=== PATIENT | male | born 1970 | race Caucasian/White ===

== ENCOUNTER 2020-09-14 09:20 | Emergency (ER) | payer OTHER, BC, SELFPAY ==
--- NOTE | ~2020-09-14 | XR_ITS ---
EXAMINATION: XR CHEST CLINICAL INFORMATION: Cough with sputum production COMPARISON: January 07, 2012 TECHNIQUE: AP portable view of the chest was obtained. FINDINGS: No significant abnormality is noted involving the heart, lungs, mediastinum, bony thorax or soft tissues. XR/XR chest 1V IMPRESSION: No acute disease.
[2020-09-14 09:29] VITALS: BP 136/93; PULSE 71; RESP 18; TEMP 36.9; O2SAT 95; BMI 29.8
--- NOTE | 2020-09-14 10:59 | ECG_ITS ---
Test Reason : DYSPNEA Blood Pressure : / mmHG Vent. Rate : 070 BPM Atrial Rate : 070 BPM P-R Int : 152 ms QRS Dur : 090 ms QT Int : 414 ms P-R-T Axes : 027 010 018 degrees QTc Int : 447 ms Normal sinus rhythm Normal ECG When compared with ECG of 23-DEC-2016 19:02, No significant change was found Referred By: Lissa Momin Electronically Signed By:ARUN BECKER MD
[2020-09-14 12:25] VITALS: BP 145/97; PULSE 67; RESP 20; TEMP 36.8; O2SAT 95
--- NOTE | 2020-09-14 12:25 | PC.NURSE ---
iv inserted, labs drawn, vss, covid swab obtained, will continue to monitor.
[2020-09-14 12:31] LABS: MANUAL DIFF FLAG NO
[2020-09-14 12:33] LABS: Basophils Percent Auto 0.6 % (0-2); Eosinophils Absolute Auto 0.1 X10*3/uL (0.0-0.4); Eosinophils Percent Auto 2.1 % (0-4); Hematocrit 41.4 % (42-52); Hemoglobin 14.4 g/dl (14.0-18.0); Imm Gran Abs Auto 0.01 X10*3/uL (0.00-0.03); Imm Gran Pct Auto 0.2 % (0.0-0.4); Lymphocytes Absolute Auto 1.5 X10*3/uL (1.2-4.9); Lymphocytes Percent Auto 24.6 % (20-40); Mean Corpuscular HGB Conc 34.8 g/dl (31.0-36.0); Mean Corpuscular Hemoglobin 31.4 pg (27.0-33.0); Mean Corpuscular Volume 90.2 fL (80-98); Mean Platelet Volume 10.2 fL (9.4-12.4); Monocytes Absolute Auto 0.6 X10*3/uL (0.1-1.2); Monocytes Percent Auto 9.2 % (2-11); Neutrophils Absolute Auto 3.9 X10*3/uL (2.0-8.3); Neutrophils Percent Auto 63.3 % (45-73); Platelet Count 185 X10*3/uL (160-400); Red Blood Count 4.59 X10*6/uL (4.60-5.80); Red Cell Distribution Width 12.9 % (11.0-16.0); White Blood Count 6.2 X10*3/uL (4.8-10.8)
[2020-09-14 12:39] LABS: Prothrombin Time 11.5 SEC (10.8-13.0)
[2020-09-14 12:43] LABS: D Dimer < 200 NG/ML
[2020-09-14 13:05] LABS: Alanine Aminotransferase 96 U/L (0-40); Albumin Level 4.6 g/dL (3.5-5.0); Alkaline Phosphatase 67 U/L (39-117); Anion Gap 12 (12-20); Aspartate Amino Transferase 37 U/L (5-37); Bilirubin Direct 0.2 mg/dL (0.0-0.5); Bilirubin Total 0.5 mg/dL (0.0-1.0); Blood Urea Nitrogen 9 mg/dL (9-16); Carbon Dioxide 27 mmol/L (22-29); Chloride 105 mmol/L (96-108); Creatinine Clr Calc Pharmacy 125.6; Estimated Glomerular Filt Rate > 60; Glucose Random 109 mg/dL (60-115); Magnesium 2.3 mg/dL (1.6-2.6); Potassium 4.2 mmol/L (3.3-5.1); Sodium 140 mmol/L (135-145); Total Protein 7.9 g/dL (6.5-8.0)
[2020-09-14 13:10] LABS: B Type Natriuretic Peptide < 10 pg/mL (<100)
[2020-09-14 13:14] LABS: Lactate Dehydrogenase 274 U/L (118-273)
[2020-09-14 13:24] LABS: Procalcitonin 0.06 ng/mL
[2020-09-14 13:44] LABS: Ferritin 270 ng/mL (20-250)
[2020-09-14 14:18] LABS: Influenza A PCR NEGATIVE (Negative); Influenza B PCR NEGATIVE (Negative); Resp Syncy Virus RNA Qual PCR NEGATIVE (Negative); SARS COV2 PCR INHOUSE NEGATIVE (Negative)
--- NOTE | 2020-09-14 14:18 | ED.SOB ---
HPI - SOB/Dyspnea General Chief Complaint: Dyspnea <PERLITA Loya - Last Filed: 09/14/20 15:11> Stated Complaint: SOB <PERLITA Loya - Last Filed: 09/14/20 15:11> Time Seen by Provider: 09/14/20 10:32 <PERLITA Loya Last Filed: 09/14/20 15:11> Source: patient <PERLITA Loya Last Filed: 09/14/20 15:11> Mode of arrival: ambulatory <PERLITA Loya Last Filed: 09/14/20 15:11> Limitations: no limitations <PERLITA Loya Last Filed: 09/14/20 15:11> History of Present Illness HPI Narrative: 50-year-old male with a past medical history of asthma presenting to the ED with complaints of a productive cough with shortness of breath since last night worse today. Denies any headaches, dizziness, fevers, chills, neck pain/stiffness, sore throat, nasal congestion, runny nose, chest pain, dyspnea on exertion, orthopnea, nausea/vomiting/diarrhea, abdominal pain, back pain, lower extremity edema, penile discharge, dysuria, hematuria, black or bloody stools or any other symptom complaints or concerns at this time. Reports that he works at [employer] and works with chemicals. Denies recent travel or sick contacts. <PERLITA Loya - Last Filed: 09/14/20 15:11> MD elicited complaint: shortness of breath, cough and pain with inspiration <PERLITA Loya Last Filed: 09/14/20 15:11> Pertinent past history: asthma <PERLITA Loya - Last Filed: 09/14/20 15:11> Onset (ago): day(s) (Two days worse today) <PERLITA Loya Last Filed: 09/14/20 15:11> Context: other (Exposure to chemicals at work although has been working at same location over 20 years) <PERLITA Loya Last Filed: 09/14/20 15:11> Timing: constant and progressively worsening <PERLITA Loya Last Filed: 09/14/20 15:11> Severity: mild <PERLITA Loya Last Filed: 09/14/20 15:11> Exacerbating factors: coughing, inspiration and deep breaths <PERLITA Loya - Last Filed: 09/14/20 15:11> Relieving factors: rest <PERLITA Loya - Last Filed: 09/14/20 15:11> Known history of: asthma <PERLITA Loya - Last Filed: 09/14/20 15:11> Associated symptoms: cough and sputum production <PERLITA Loya Last Filed: 09/14/20 15:11> Related Data Home oxygen amount: none <PERLITA Loya - Last Filed: 09/14/20 15:11> Home Medications: Previous Rx's Medication Instructions Recorded acetaminophen [Tylenol Extra 1,000 mg PO QID PRN #14 tab 09/14/20 Strength] albuterol sulfate 0.63 mg INHALATION QID PRN #75 ml 09/14/20 albuterol sulfate 1 inh INHALATION QID PRN #8.5 g 09/14/20 azithromycin See Rx Instructions .ROUTE 09/14/20 .COMPLEX #6 tab codeine-guaifenesin [Guaifenesin 5 ml PO Q6H PRN #120 ml 09/14/20 AC] ibuprofen 800 mg PO Q8H PRN #14 tab 09/14/20 nebulizers [AeroEclipse II #1 ea 09/14/20 Nebulizer] <PERLITA Loya - Last Filed: 09/14/20 15:11> Allergies/Adverse Reactions: Allergies Allergy/AdvReac Type Severity Reaction Status Date / Time diazepam [DIAZEPAM] Allergy Severe SYNCOPY Unverified 02/03/20 17:08 pet dander Allergy Unknown Unverified 01/08/18 00:00 Environmental Allergy Unknown Uncoded 02/21/16 00:00 pollen Allergy Unknown Uncoded 01/08/18 00:00 buspirone AdvReac Unknown abdominal Uncoded 02/21/16 00:00 pain trazodone AdvReac Unknown alopecia Uncoded 02/21/16 00:00 <PERLITA Loya Last Filed: 09/14/20 15:11> Review of Systems Review of Systems: Constitutional : No Weight loss, No Fever, No Chills, No Night Sweats, No Fatigue, NoMalaise ENT/Mouth: No ear pain, No sore throat, No Difficulty swallowing Cardiovascular : No Chest Pain, No SOB, No Dyspnea on Exertion, No Orthopnea, NoEdema, No Palpitations Respiratory : + Cough, + Sputum, No Wheezing, No Dyspnea Gastrointestinal : No Nausea, No Vomiting, No abdominal pain, No Diarrhea, No blood streaked emesis, No coffee-ground emesis, No gross hematemesis, No blood streak stool, No gross hematochezia, No Melena Genitourinary : No irregular bleeding, No Dysuria, No Urinary Frequency, No Hematuria,No Urinary Incontinence, No Urgency, No Flank Pain Musculoskeletal : No joint pain, No Myalgias, No Joint Swelling Skin : No Skin Lesions, No rash Neuro : No Weakness, No Numbness, No Paresthesias, No Loss of Consciousness, NoDizziness, No Headache Psych : No Social Issues, Heme/Lymph: No Bruising, No Bleeding,No Lymphadenopathy Endocrine : No Polyuria, No Polydipsia, No Temperature Intolerance <PERLITA Loya - Last Filed: 09/14/20 15:11> Yes all other systems are reviewed and are negative <PERLITA Loya - Last Filed: 09/14/20 15:11> [facility] Past Medical History Attestation statement: The following information was validated with the patient. <PERLITA Loya - Last Filed: 09/14/20 15:11> Medical History: Medical History Asthma <PERLITA Loya - Last Filed: 09/14/20 15:11> Surgical History: Surgical History History of hand surgery <PERLITA Loya - Last Filed: 09/14/20 15:11> Social History Social History: Social History Smoking Status: Former smoker Use of substances other than those prescribed or required for medical reasons: No Advance Directives: Yes Advance Directives Information Provided: No Advance Directives on File: No <PERLITA Loya Last Filed: 09/14/20 15:11> Physical Exam Vital Signs: Vital Signs: Last Vital Signs Temp 98.2 F 09/14/20 14:33 Pulse 67 09/14/20 14:33 Resp 18 09/14/20 14:33 BP 134/93 H 09/14/20 14:33 Pulse Ox 95 09/14/20 14:33 Body Mass Index 29.8 vital signs have been reviewed as normal and appeared to be correct. Blood pressure normal. Heart rate normal. Respiration rate normal. Temperature normal. Oxygen saturation normal. <PERLITA Loya - Last Filed: 09/14/20 15:11> Vital Signs: Last Vital Signs Temp 98.2 F 09/14/20 14:33 Pulse 67 09/14/20 14:33 Resp 18 09/14/20 14:33 BP 134/93 H 09/14/20 14:33 Pulse Ox 95 09/14/20 14:33 Body Mass Index 29.8 <Eulalio Lamb MD - Last Filed: 09/30/20 01:36> Appearance: Alert. Oriented X3. No acute distress. Head: Normal external exam. Normocephalic. Atraumatic. Eyes: PERRLA. EOMI. Conjunctiva and sclera normal. Eyelids normal. ENT: EAC normal. TM's Normal. Pharynx normal. Uvula midline. Moist mucous membranes. No trismus noted. No drooling noted. No muffled voice noted. Neck: Normal inspection. Neck supple. FROM. No adenopathy. Thyroid Normal. No meningeal signs. No neck mass noted. CVS: Normal heart rate and rhythm. Heart sound normal. No murmurs noted. Pulses normal throughout. Respiratory: No respiratory distress. Painless inspiration. Breath sounds normal. No wheezes/rales/rhonchi noted. Chest nontender. No accessory muscle usage noted or decreased air movement noted. Abdomen: Soft and nontender. Bowel sounds normal in all 4 quadrants. No distention noted. No organomegaly noted. No visible injury noted. Back: No CVA tenderness. Full range of motion noted. Skin: Skin warm and dry. Normal skin color. Normal skin turgor. No rashes/lesions/lacerations noted. Extremities: No lower extremity edema. Extremities exhibit normal range of motion. Extremities nontender. Neuro: Oriented X 3. No motor deficit. No sensory deficit. Reflexes normal. <PERLITA Loya - Last Filed: 09/14/20 15:11> Course Course Course Narrative: 50-year-old male with a past medical history of asthma presenting to the ED with complaints of a productive cough since yesterday worse today. On exam patient is alert and oriented x3. Not in any acute distress. Vital signs are stable within normal limits. lungs CTA. CV RRR. Abdomen is soft and nontender. No lower extremity edema or calf tenderness noted. - labs obtained and mild elevation in ferritin at 270. ALT 96. LDH 274. All other labs are within normal limits. UA within normal limits no evidence of UTI. Patient is negative for COVID/RSV/flu. Chest x-ray is negative for pneumonia or any other acute processes. EKG is normal sinus rhythm no acute ischemic changes with a ventricular rate of 70 normal [place] interval normal QRS duration normal QT/QTC interval. - therefore instructed patient to get retested for COVID in 7-10 days and to self isolate will DC home with antibiotics and symptomatic treatment instructions to return if any new or worsening symptoms follow-up with primary care provider. Patient's and agrees with this plan. <PERLITA Loya - Last Filed: 09/14/20 15:11> I have reviewed the chart <Eulalio Lamb MD - Last Filed: 09/30/20 01:36> MDM - SOB/Dyspnea Differential Diagnosis Differential diagnosis: Likely acute exacerbation of chronic obstructive airways disease, congestive heart failure, pneumonia, asthma with exacerbation, pulmonary embolism, pleural effusion and anemia <PERLITA Loya - Last Filed: 09/14/20 15:11> Medical Records Attestation: I reviewed the patient's medical records. <PERLITA Loya - Last Filed: 09/14/20 15:11> Lab Data Attestation: I reviewed the patient's lab results. <PERLITA Loya - Last Filed: 09/14/20 15:11> Result diagrams: : 09/14/20 12:22 09/14/20 12:22 <PERLITA Loya - Last Filed: 09/14/20 15:11> Labs: Lab Results 09/14/20 09/14/20 09/14/20 Range/Units 12:22 12:22 12:22 WBC 6.2 (4.8-10.8) X10*3/uL RBC 4.59 L (4.60-5.80) X10*6/uL Hgb 14.4 (14.0-18.0) g/dl Hct 41.4 L (42-52) % MCV 90.2 (80-98) fL MCH 31.4 (27.0-33.0) pg MCHC 34.8 (31.0-36.0) g/dl RDW 12.9 (11.0-16.0) % Plt Count 185 (160-400) X10*3/uL MPV 10.2 (9.4-12.4) fL Immature Gran % (Auto) 0.2 (0.0-0.4) % Neut % (Auto) 63.3 (45-73) % Lymph % (Auto) 24.6 (20-40) % [place] % (Auto) 9.2 (2-11) % Eos % (Auto) 2.1 (0-4) % Baso % (Auto) 0.6 (0-2) % Lymph # (Auto) 1.5 (1.2-4.9) X10*3/uL [place] # (Auto) 0.6 (0.1-1.2) X10*3/uL Eos # (Auto) 0.1 (0.0-0.4) X10*3/uL Baso # (Auto) 0.0 (0.0-0.2) X10*3/uL Abs Immat Gran (auto) 0.01 (0.00-0.03) X10*3/uL Absolute Neuts (auto) 3.9 (2.0-8.3) X10*3/uL Absolute Nucleated RBC 0.000 (0.0-0.012) X10*3/uL Nucleated RBC % (auto) 0.0 (0.0-0.2) /100WBC Hold Purple Top SEE NOTE PT 11.5 (10.8-13.0) SEC INR 1.0 (0.9-1.1) D-Dimer < 200 NG/ML Sodium (135-145) mmol/L Potassium (3.3-5.1) mmol/L Chloride (96-108) mmol/L Carbon Dioxide (22-29) mmol/L Anion Gap (12-20) BUN (9-16) mg/dL Creatinine (0.5-1.4) mg/dL Estim Creat Clear Calc Estimated GFR Random Glucose (60-115) mg/dL Calcium (8.4-10.2) mg/dL Magnesium (1.6-2.6) mg/dL Ferritin (20-250) ng/mL Total Bilirubin (0.0-1.0) mg/dL Direct Bilirubin (0.0-0.5) mg/dL AST (5-37) U/L ALT (0-40) U/L Alkaline Phosphatase (39-117) U/L Lactate Dehydrogenase (118-273) U/L C-Reactive Protein (< or = 0.50) mg/dL B-Natriuretic Peptide (<100) pg/mL Total Protein (6.5-8.0) g/dL Albumin (3.5-5.0) g/dL Procalcitonin ng/mL Urine Color Urine Appearance Urine pH (5.0-8.0) Ur Specific [place] (1.005-1.025) Urine Protein (NEG-TRACE) MG/DL Urine Glucose (UA) (NEG) MG/DL Urine Ketones (NEG) MG/DL Urine Blood (NEG) Urine Nitrite (NEG) Ur Leukocyte Esterase (NEG) Coronavirus (PCR) (Negative) Influenza Type A (PCR) (Negative) Influenza Type B (PCR) (Negative) RSV RNA Qual (PCR) (Negative) 09/14/20 09/14/20 09/14/20 Range/Units 12:22 12:22 12:22 WBC (4.8-10.8) X10*3/uL RBC (4.60-5.80) X10*6/uL Hgb (14.0-18.0) g/dl Hct (42-52) % MCV (80-98) fL MCH (27.0-33.0) pg MCHC (31.0-36.0) g/dl RDW (11.0-16.0) % Plt Count (160-400) X10*3/uL MPV (9.4-12.4) fL Immature Gran % (Auto) (0.0-0.4) % Neut % (Auto) (45-73) % Lymph % (Auto) (20-40) % [place] % (Auto) (2-11) % Eos % (Auto) (0-4) % Baso % (Auto) (0-2) % Lymph # (Auto) (1.2-4.9) X10*3/uL [place] # (Auto) (0.1-1.2) X10*3/uL Eos # (Auto) (0.0-0.4) X10*3/uL Baso # (Auto) (0.0-0.2) X10*3/uL Abs Immat Gran (auto) (0.00-0.03) X10*3/uL Absolute Neuts (auto) (2.0-8.3) X10*3/uL Absolute Nucleated RBC (0.0-0.012) X10*3/uL Nucleated RBC % (auto) (0.0-0.2) /100WBC Hold Purple Top PT (10.8-13.0) SEC INR (0.9-1.1) D-Dimer NG/ML Sodium 140 (135-145) mmol/L Potassium 4.2 (3.3-5.1) mmol/L Chloride 105 (96-108) mmol/L Carbon Dioxide 27 (22-29) mmol/L Anion Gap 12 (12-20) BUN 9 (9-16) mg/dL Creatinine 0.87 (0.5-1.4) mg/dL Estim Creat Clear Calc 125.6 Estimated GFR > 60 Random Glucose 109 (60-115) mg/dL Calcium 9.0 (8.4-10.2) mg/dL Magnesium 2.3 (1.6-2.6) mg/dL Ferritin 270 H (20-250) ng/mL Total Bilirubin 0.5 (0.0-1.0) mg/dL Direct Bilirubin 0.2 (0.0-0.5) mg/dL AST 37 (5-37) U/L ALT 96 H (0-40) U/L Alkaline Phosphatase 67 (39-117) U/L Lactate Dehydrogenase 274 H (118-273) U/L C-Reactive Protein 0.50 (< or = 0.50) mg/dL B-Natriuretic Peptide < 10 (<100) pg/mL Total Protein 7.9 (6.5-8.0) g/dL Albumin 4.6 (3.5-5.0) g/dL Procalcitonin 0.06 ng/mL Urine Color Urine Appearance Urine pH (5.0-8.0) Ur Specific [place] (1.005-1.025) Urine Protein (NEG-TRACE) MG/DL Urine Glucose (UA) (NEG) MG/DL Urine Ketones (NEG) MG/DL Urine Blood (NEG) Urine Nitrite (NEG) Ur Leukocyte Esterase (NEG) Coronavirus (PCR) (Negative) Influenza Type A (PCR) (Negative) Influenza Type B (PCR) (Negative) RSV RNA Qual (PCR) (Negative) 09/14/20 09/14/20 Range/Units 12:22 14:36 WBC (4.8-10.8) X10*3/uL RBC (4.60-5.80) X10*6/uL Hgb (14.0-18.0) g/dl Hct (42-52) % MCV (80-98) fL MCH (27.0-33.0) pg MCHC (31.0-36.0) g/dl RDW (11.0-16.0) % Plt Count (160-400) X10*3/uL MPV (9.4-12.4) fL Immature Gran % (Auto) (0.0-0.4) % Neut % (Auto) (45-73) % Lymph % (Auto) (20-40) % [place] % (Auto) (2-11) % Eos % (Auto) (0-4) % Baso % (Auto) (0-2) % Lymph # (Auto) (1.2-4.9) X10*3/uL [place] # (Auto) (0.1-1.2) X10*3/uL Eos # (Auto) (0.0-0.4) X10*3/uL Baso # (Auto) (0.0-0.2) X10*3/uL Abs Immat Gran (auto) (0.00-0.03) X10*3/uL Absolute Neuts (auto) (2.0-8.3) X10*3/uL Absolute Nucleated RBC (0.0-0.012) X10*3/uL Nucleated RBC % (auto) (0.0-0.2) /100WBC Hold Purple Top PT (10.8-13.0) SEC INR (0.9-1.1) D-Dimer NG/ML Sodium (135-145) mmol/L Potassium (3.3-5.1) mmol/L Chloride (96-108) mmol/L Carbon Dioxide (22-29) mmol/L Anion Gap (12-20) BUN (9-16) mg/dL Creatinine (0.5-1.4) mg/dL Estim Creat Clear Calc Estimated GFR Random Glucose (60-115) mg/dL Calcium (8.4-10.2) mg/dL Magnesium (1.6-2.6) mg/dL Ferritin (20-250) ng/mL Total Bilirubin (0.0-1.0) mg/dL Direct Bilirubin (0.0-0.5) mg/dL AST (5-37) U/L ALT (0-40) U/L Alkaline Phosphatase (39-117) U/L Lactate Dehydrogenase (118-273) U/L C-Reactive Protein (< or = 0.50) mg/dL B-Natriuretic Peptide (<100) pg/mL Total Protein (6.5-8.0) g/dL Albumin (3.5-5.0) g/dL Procalcitonin ng/mL Urine Color YELLOW Urine Appearance CLEAR Urine pH 7.0 (5.0-8.0) Ur Specific [place] 1.020 (1.005-1.025) Urine Protein NEG (NEG-TRACE) MG/DL Urine Glucose (UA) NEG (NEG) MG/DL Urine Ketones NEG (NEG) MG/DL Urine Blood NEG (NEG) Urine Nitrite NEG (NEG) Ur Leukocyte Esterase NEG (NEG) Coronavirus (PCR) NEGATIVE (Negative) Influenza Type A (PCR) NEGATIVE (Negative) Influenza Type B (PCR) NEGATIVE (Negative) RSV RNA Qual (PCR) NEGATIVE (Negative) <PERLITA Loya - Last Filed: 09/14/20 15:11> Lab Results 09/14/20 09/14/20 09/14/20 Range/Units 12:22 12:22 12:22 WBC 6.2 (4.8-10.8) X10*3/uL RBC 4.59 L (4.60-5.80) X10*6/uL Hgb 14.4 (14.0-18.0) g/dl Hct 41.4 L (42-52) % MCV 90.2 (80-98) fL MCH 31.4 (27.0-33.0) pg MCHC 34.8 (31.0-36.0) g/dl RDW 12.9 (11.0-16.0) % Plt Count 185 (160-400) X10*3/uL MPV 10.2 (9.4-12.4) fL Immature Gran % (Auto) 0.2 (0.0-0.4) % Neut % (Auto) 63.3 (45-73) % Lymph % (Auto) 24.6 (20-40) % [place] % (Auto) 9.2 (2-11) % Eos % (Auto) 2.1 (0-4) % Baso % (Auto) 0.6 (0-2) % Lymph # (Auto) 1.5 (1.2-4.9) X10*3/uL [place] # (Auto) 0.6 (0.1-1.2) X10*3/uL Eos # (Auto) 0.1 (0.0-0.4) X10*3/uL Baso # (Auto) 0.0 (0.0-0.2) X10*3/uL Abs Immat Gran (auto) 0.01 (0.00-0.03) X10*3/uL Absolute Neuts (auto) 3.9 (2.0-8.3) X10*3/uL Absolute Nucleated RBC 0.000 (0.0-0.012) X10*3/uL Nucleated RBC % (auto) 0.0 (0.0-0.2) /100WBC Hold Purple Top SEE NOTE PT 11.5 (10.8-13.0) SEC INR 1.0 (0.9-1.1) D-Dimer < 200 NG/ML Sodium (135-145) mmol/L Potassium (3.3-5.1) mmol/L Chloride (96-108) mmol/L Carbon Dioxide (22-29) mmol/L Anion Gap (12-20) BUN (9-16) mg/dL Creatinine (0.5-1.4) mg/dL Estim Creat Clear Calc Estimated GFR Random Glucose (60-115) mg/dL Calcium (8.4-10.2) mg/dL Magnesium (1.6-2.6) mg/dL Ferritin (20-250) ng/mL Total Bilirubin (0.0-1.0) mg/dL Direct Bilirubin (0.0-0.5) mg/dL AST (5-37) U/L ALT (0-40) U/L Alkaline Phosphatase (39-117) U/L Lactate Dehydrogenase (118-273) U/L C-Reactive Protein (< or = 0.50) mg/dL B-Natriuretic Peptide (<100) pg/mL Total Protein (6.5-8.0) g/dL Albumin (3.5-5.0) g/dL Procalcitonin ng/mL Urine Color Urine Appearance Urine pH (5.0-8.0) Ur Specific [place] (1.005-1.025) Urine Protein (NEG-TRACE) MG/DL Urine Glucose (UA) (NEG) MG/DL Urine Ketones (NEG) MG/DL Urine Blood (NEG) Urine Nitrite (NEG) Ur Leukocyte Esterase (NEG) Coronavirus (PCR) (Negative) Influenza Type A (PCR) (Negative) Influenza Type B (PCR) (Negative) RSV RNA Qual (PCR) (Negative) 09/14/20 09/14/20 09/14/20 Range/Units 12:22 12:22 12:22 WBC (4.8-10.8) X10*3/uL RBC (4.60-5.80) X10*6/uL Hgb (14.0-18.0) g/dl Hct (42-52) % MCV (80-98) fL MCH (27.0-33.0) pg MCHC (31.0-36.0) g/dl RDW (11.0-16.0) % Plt Count (160-400) X10*3/uL MPV (9.4-12.4) fL Immature Gran % (Auto) (0.0-0.4) % Neut % (Auto) (45-73) % Lymph % (Auto) (20-40) % [place] % (Auto) (2-11) % Eos % (Auto) (0-4) % Baso % (Auto) (0-2) % Lymph # (Auto) (1.2-4.9) X10*3/uL [place] # (Auto) (0.1-1.2) X10*3/uL Eos # (Auto) (0.0-0.4) X10*3/uL Baso # (Auto) (0.0-0.2) X10*3/uL Abs Immat Gran (auto) (0.00-0.03) X10*3/uL Absolute Neuts (auto) (2.0-8.3) X10*3/uL Absolute Nucleated RBC (0.0-0.012) X10*3/uL Nucleated RBC % (auto) (0.0-0.2) /100WBC Hold Purple Top PT (10.8-13.0) SEC INR (0.9-1.1) D-Dimer NG/ML Sodium 140 (135-145) mmol/L Potassium 4.2 (3.3-5.1) mmol/L Chloride 105 (96-108) mmol/L Carbon Dioxide 27 (22-29) mmol/L Anion Gap 12 (12-20) BUN 9 (9-16) mg/dL Creatinine 0.87 (0.5-1.4) mg/dL Estim Creat Clear Calc 125.6 Estimated GFR > 60 Random Glucose 109 (60-115) mg/dL Calcium 9.0 (8.4-10.2) mg/dL Magnesium 2.3 (1.6-2.6) mg/dL Ferritin 270 H (20-250) ng/mL Total Bilirubin 0.5 (0.0-1.0) mg/dL Direct Bilirubin 0.2 (0.0-0.5) mg/dL AST 37 (5-37) U/L ALT 96 H (0-40) U/L Alkaline Phosphatase 67 (39-117) U/L Lactate Dehydrogenase 274 H (118-273) U/L C-Reactive Protein 0.50 (< or = 0.50) mg/dL B-Natriuretic Peptide < 10 (<100) pg/mL Total Protein 7.9 (6.5-8.0) g/dL Albumin 4.6 (3.5-5.0) g/dL Procalcitonin 0.06 ng/mL Urine Color Urine Appearance Urine pH (5.0-8.0) Ur Specific [place] (1.005-1.025) Urine Protein (NEG-TRACE) MG/DL Urine Glucose (UA) (NEG) MG/DL Urine Ketones (NEG) MG/DL Urine Blood (NEG) Urine Nitrite (NEG) Ur Leukocyte Esterase (NEG) Coronavirus (PCR) (Negative) Influenza Type A (PCR) (Negative) Influenza Type B (PCR) (Negative) RSV RNA Qual (PCR) (Negative) 09/14/20 09/14/20 Range/Units 12:22 14:36 WBC (4.8-10.8) X10*3/uL RBC (4.60-5.80) X10*6/uL Hgb (14.0-18.0) g/dl Hct (42-52) % MCV (80-98) fL MCH (27.0-33.0) pg MCHC (31.0-36.0) g/dl RDW (11.0-16.0) % Plt Count (160-400) X10*3/uL MPV (9.4-12.4) fL Immature Gran % (Auto) (0.0-0.4) % Neut % (Auto) (45-73) % Lymph % (Auto) (20-40) % [place] % (Auto) (2-11) % Eos % (Auto) (0-4) % Baso % (Auto) (0-2) % Lymph # (Auto) (1.2-4.9) X10*3/uL [place] # (Auto) (0.1-1.2) X10*3/uL Eos # (Auto) (0.0-0.4) X10*3/uL Baso # (Auto) (0.0-0.2) X10*3/uL Abs Immat Gran (auto) (0.00-0.03) X10*3/uL Absolute Neuts (auto) (2.0-8.3) X10*3/uL Absolute Nucleated RBC (0.0-0.012) X10*3/uL Nucleated RBC % (auto) (0.0-0.2) /100WBC Hold Purple Top PT (10.8-13.0) SEC INR (0.9-1.1) D-Dimer NG/ML Sodium (135-145) mmol/L Potassium (3.3-5.1) mmol/L Chloride (96-108) mmol/L Carbon Dioxide (22-29) mmol/L Anion Gap (12-20) BUN (9-16) mg/dL Creatinine (0.5-1.4) mg/dL Estim Creat Clear Calc Estimated GFR Random Glucose (60-115) mg/dL Calcium (8.4-10.2) mg/dL Magnesium (1.6-2.6) mg/dL Ferritin (20-250) ng/mL Total Bilirubin (0.0-1.0) mg/dL Direct Bilirubin (0.0-0.5) mg/dL AST (5-37) U/L ALT (0-40) U/L Alkaline Phosphatase (39-117) U/L Lactate Dehydrogenase (118-273) U/L C-Reactive Protein (< or = 0.50) mg/dL B-Natriuretic Peptide (<100) pg/mL Total Protein (6.5-8.0) g/dL Albumin (3.5-5.0) g/dL Procalcitonin ng/mL Urine Color YELLOW Urine Appearance CLEAR Urine pH 7.0 (5.0-8.0) Ur Specific [place] 1.020 (1.005-1.025) Urine Protein NEG (NEG-TRACE) MG/DL Urine Glucose (UA) NEG (NEG) MG/DL Urine Ketones NEG (NEG) MG/DL Urine Blood NEG (NEG) Urine Nitrite NEG (NEG) Ur Leukocyte Esterase NEG (NEG) Coronavirus (PCR) NEGATIVE (Negative) Influenza Type A (PCR) NEGATIVE (Negative) Influenza Type B (PCR) NEGATIVE (Negative) RSV RNA Qual (PCR) NEGATIVE (Negative) <Eulalio Lamb MD - Last Filed: 09/30/20 01:36> Imaging Data Chest x-ray: Attestation: I personally reviewed and interpreted this imaging study as follows: <PERLITA Loya - Last Filed: 09/14/20 15:11> Radiologist's impression: FINDINGS: No significant abnormality is noted involving the heart, lungs, mediastinum, bony thorax or soft tissues. XR/XR chest 1V IMPRESSION: No acute disease. <PERLITA Loya - Last Filed: 09/14/20 15:11> ECG Data Attestation: I personally reviewed and interpreted this ECG as follows: <PERLITA Loya - Last Filed: 09/14/20 15:11> ECG interpretation date: 09/14/20 <PERLITA Loya Last Filed: 09/14/20 15:11> ECG interpretation time: 11:04 <PERLITA Loya Last Filed: 09/14/20 15:11> Interpretation: Normal sinus rhythm with ventricular rate of 70 with a normal IL interval normal QRS duration normal QT/QTC interval. No acute ischemic changes are noted. Similar compared to prior EKG 12/23/2016 <PERLITA Loya Last Filed: 09/14/20 15:11> Discharge Plan Discharge Clinical Impression: Asthma, Asthma with exacerbation, Bronchitis <PERLITA Loya Last Filed: 09/14/20 15:11> Patient Disposition: Home, Self-Care <PERLITA Loya Last Filed: 09/14/20 15:11> Instructions: Asthma (ED), Acute Bronchitis (ED) <PERLITA Loya - Last Filed: 09/14/20 15:11> Additional Instructions: You have tested negative for COVID-19 at this time although this could be a false negative and you could possibly not have enough viral load in your body to test positive I am recommending that you have a repeat test in 7-10 days. You should also self isolate for 7-10 days. Return if any new or worsening symptoms. Follow-up with your primary care provider. At this time you will be okay for discharge. Please plan for self quarantine for up to 14 days. Do not expose yourself to others. You may not go to work. If testing does come back negative you may return to activities as long as you are no longer having any symptoms for at least 3 days. Please continue to follow cold instructions and wash your hands frequently. You may take Tylenol as directed on the bottle for pain or fever. Patient seen in the emergency department on 09/14/2020 and should be excused from work until negative test results AND until 72 hours without any symptoms AND at least 7 days have passed since symptoms first appeared or since last exposure to COVID-19 positive patient CDC Guidelines for home isolation: - Stay away from others - WEAR A MASK if you are sick AND STAY HOME - Cover your mouth and nose with a tissue when you cough or sneeze. Dispose of tissues in a lined trash can and wash your hands immediately with soap and water for at least 20 seconds. If soap and water are not available, clean hands with alcohol-based hand rn provider relations that contains at least 60% alcohol. - Clean your hands often with soap and water for at least 20 seconds - Avoid touching your eyes, nose and mouth with unwashed hands - Do not share dishes, drinking glasses, cups, eating utensils, towels, or bedding with other people in your home. After using these items, wash them thoroughly with soap and water or put in the affirmative action specialist. - Clean high-touch surfaces in your isolation area ( sick room and bathroom) every day; let a caregiver clean and disinfect high-touch surfaces in other areas of the home. Clean the area or item with soap and water or another detergent if it is dirty. Then, use a household disinfectant. - Limit contact with pets and animals: If you must care for a pet, wash your hands before and after interacting with them). <PERLITA Loya - Last Filed: 09/14/20 15:11> Prescriptions: New (DME) AeroEclipse II [place]ul[place] [facility] [place]ructions .ROUTE .MEDSUPPLY Qty: 1 RF: 0 azithromycin 250 mg tablet See Rx Instructions .ROUTE .COMPLEX Qty: 6 RF: 0 albuterol sulfate 0.63 mg/3 mL solution for nebulization 0.63 mg inhalation QID PRN (Reason: shortness of breath or wheezing) Qty: 75 RF: 0 albuterol sulfate 90 mcg/actuation HFA aerosol inhaler 1 inh inhalation QID PRN (Reason: shortness of breath or wheezing) Qty: 8.5 RF: 0 codeine-guaifenesin [Guaifenesin AC] 10-100 mg/5 mL liquid 5 ml PO Q6H PRN (Reason: cold symptoms) Qty: 120 RF: 0 ibuprofen 800 mg tablet 800 mg PO Q8H PRN (Reason: pain) Qty: 14 RF: 0 acetaminophen [Tylenol Extra Strength] 500 mg tablet 1,000 mg PO QID PRN (Reason: fever or pain) Qty: 14 RF: 0 <PERLITA Loya - Last Filed: 09/14/20 15:11> Referrals: William Echeverria MD [Primary Care Provider] - 2 days <PERLITA Loya - Last Filed: 09/14/20 15:11> Stand Alone Forms: Work/School Release <PERLITA Loya - Last Filed: 09/14/20 15:11> Interventions: ED Discharge Assessment Last Done: 09/14/20 15:06 <PERLITA Loya - Last Filed: 09/14/20 15:11> Discharge Date/Time: 09/14/20 15:16 <PERLITA Loya - Last Filed: 09/14/20 15:11> Print Language: [place] <PERLITA Loya - Last Filed: 09/14/20 15:11>
[2020-09-14 14:33] VITALS: BP 134/93; PULSE 67; RESP 18; TEMP 36.8; O2SAT 95
[2020-09-14 14:46] LABS: Glucose Urine UA NEG (NEG); Leukocyte Esterase Urine NEG (NEG); Nitrite Urine NEG (NEG); Urine Blood NEG (NEG); Urine Ketones NEG (NEG); Urine Protein NEG (NEG-TRACE)
[2020-09-14 14:47] LABS: Appearance Urine CLEAR; Color Urine YELLOW
== END 2020-09-14 15:16 | disposition home or self-care (01) ==
PROVIDERS: Physician Assistant Medical; Emergency Provider Emergency Medicine; PCP Internal Medicine
DX: J45.901 Unspecified asthma with (acute) exacerbation (principal); J20.9 Acute bronchitis, unspecified; Z20.822 Contact with and (suspected) exposure to COVID-19; Z87.891 Personal history of nicotine dependence
CPT/HCPCS: 0241U; 36415; 71045; 80053; 80076; 81003; 82248; 82728; 83615; 83735; 83880; 84145; 85025; 85379; 85610; 86140; 93005; 99283; 99285

== ENCOUNTER 2021-11-17 18:48 | Emergency (ER) | payer BC, SELFPAY ==
[2021-11-17 19:03] VITALS: BP 177/97; PULSE 75; O2SAT 99
[2021-11-17 19:20] VITALS: BP 171/96; PULSE 70; RESP 17; TEMP 37.1; O2SAT 97; BMI 32.8
[2021-11-17 19:35] LABS: MANUAL DIFF FLAG NO
[2021-11-17 19:50] LABS: Basophils Percent Auto 0.5 % (0-2); Eosinophils Absolute Auto 0.2 X10*3/uL (0.0-0.4); Eosinophils Percent Auto 3.4 % (0-4); Hematocrit 39.2 % (42.0-52.0); Hemoglobin 13.8 g/dl (14.0-18.0); Imm Gran Abs Auto 0.02 X10*3/uL (0.00-0.03); Imm Gran Pct Auto 0.3 % (0.0-0.4); Lymphocytes Absolute Auto 1.4 X10*3/uL (1.2-4.9); Lymphocytes Percent Auto 23.8 % (20-40); Mean Corpuscular HGB Conc 35.2 g/dl (31.0-36.0); Mean Corpuscular Hemoglobin 31.2 pg (27.0-33.0); Mean Corpuscular Volume 88.7 fL (80.0-98.0); Mean Platelet Volume 10.4 fL (9.4-12.4); Monocytes Absolute Auto 0.6 X10*3/uL (0.1-1.2); Monocytes Percent Auto 10.9 % (2-11); Neutrophils Absolute Auto 3.6 x10*3/uL (2.0-8.3); Neutrophils Percent Auto 61.1 % (45-73); Platelet Count 177 X10*3/uL (160-400); Red Blood Count 4.42 X10*6/uL (4.60-5.80); Red Cell Distribution Width 12.9 % (11.0-16.0); White Blood Count 5.9 X10*3/uL (4.8-10.8)
[2021-11-17 20:06] LABS: Alanine Aminotransferase 84 U/L (0-40); Albumin Level 4.4 g/dL (3.5-5.0); Alkaline Phosphatase 75 U/L (39-117); Anion Gap 13 (12-20); Aspartate Amino Transferase 39 U/L (5-37); Bilirubin Total 0.6 mg/dL (0.0-1.0); Blood Urea Nitrogen 10 mg/dL (9-16); Carbon Dioxide 24 mmol/L (22-29); Chloride 107 mmol/L (96-108); Creatinine Clr Calc Pharmacy 131.4; Estimated Glomerular Filt Rate > 60; Glucose Random 107 mg/dL (60-115); Lipase 31 U/L (8-78); Potassium 4.2 mmol/L (3.3-5.1); Sodium 140 mmol/L (135-145); Total Protein 7.6 g/dL (6.5-8.0)
== END 2021-11-17 22:14 | disposition left against medical advice (07) ==
PROVIDERS: Emergency Provider Emergency Medicine
DX: R10.11 Right upper quadrant pain (principal)
CPT/HCPCS: 36415; 80053; 83690; 85025; 99281; 99283

== ENCOUNTER 2023-07-22 22:19 | Emergency (ER) | payer BC, SELFPAY ==
--- NOTE | 2023-07-22 | ECG_ITS ---
Test Reason : HIGH BP Blood Pressure : / mmHG Vent. Rate : 069 BPM Atrial Rate : 069 BPM P-R Int : 148 ms QRS Dur : 090 ms QT Int : 392 ms P-R-T Axes : 037 016 030 degrees QTc Int : 420 ms Normal sinus rhythm Normal ECG When compared with ECG of 14-SEP-2020 11:04, No significant change was found Referred By: Generic ED Physician Electronically Signed By:Buck Hughes
[2023-07-22 22:29] VITALS: BP 167/104; BP 218/140; PULSE 70; PULSE 76; RESP 12; TEMP 36.8; O2SAT 97; O2SAT 98; BMI 31.0
--- NOTE | 2023-07-22 22:33 | MHC.EDTECH ---
Patient came in by ambulance,changed into hospital attire,vitals taken and placed on the glove boarder,EKG taken per order and signed by provider.Call castro in reach.
[2023-07-22 22:34] VITALS: BP 172/104; PULSE 69; RESP 12; TEMP 36.8; O2SAT 96
[2023-07-22 22:49] LABS: MANUAL DIFF FLAG NO
[2023-07-22 22:51] LABS: Basophils Percent Auto 0.4 % (0-2); Eosinophils Percent Auto 0.6 % (0-4); Hematocrit 39.7 % (42.0-52.0); Hemoglobin 14.2 g/dl (14.0-18.0); Imm Gran Abs Auto 0.01 X10*3/uL (0.00-0.03); Imm Gran Pct Auto 0.1 % (0.0-0.4); Lymphocytes Absolute Auto 1.2 X10*3/uL (1.2-4.9); Lymphocytes Percent Auto 18.2 % (20-40); Mean Corpuscular HGB Conc 35.8 g/dl (31.0-36.0); Mean Corpuscular Hemoglobin 30.9 pg (27.0-33.0); Mean Corpuscular Volume 86.3 fL (80.0-98.0); Mean Platelet Volume 9.7 fL (9.4-12.4); Monocytes Absolute Auto 0.6 X10*3/uL (0.1-1.2); Monocytes Percent Auto 8.5 % (2-11); Neutrophils Absolute Auto 4.8 x10*3/uL (2.0-8.3); Neutrophils Percent Auto 72.2 % (45-73); Platelet Count 197 X10*3/uL (160-400); Red Cell Distribution Width 12.7 % (11.0-16.0); White Blood Count 6.7 X10*3/uL (4.8-10.8)
[2023-07-22 23:04] LABS: Alanine Aminotransferase 55 U/L (0-40); Albumin Level 4.4 g/dL (3.5-5.0); Alkaline Phosphatase 64 U/L (39-117); Anion Gap 11 (12-20); Aspartate Amino Transferase 23 U/L (5-37); Bilirubin Total 0.4 mg/dL (0.0-1.0); Blood Urea Nitrogen 10 mg/dL (9-16); Calcium 9.1 mg/dL (8.4-10.2); Carbon Dioxide 27 mmol/L (22-29); Chloride 107 mmol/L (96-108); Creatinine Clr Calc Pharmacy 125.1; Estimated Glomerular Filt Rate > 60; Glucose Random 116 mg/dL (60-115); Potassium 3.5 mmol/L (3.3-5.1); Sodium 141 mmol/L (135-145); Total Protein 7.9 g/dL (6.5-8.0)
[2023-07-22 23:20] LABS: Troponin-I High Sensitivity < 2.7 ng/L (<3.5-35.0)
--- NOTE | 2023-07-22 23:53 | ED.GENADULT ---
HPI - General Adult General Chief complaint: General Medical Stated complaint: HTN Time Seen by Provider: 07/22/23 23:52 Source: patient Mode of arrival: ambulatory Limitations: no limitations History of Present Illness HPI narrative: Patient history of PTSD recently diagnosed with hypertension 3 days ago started on valsartan 80 mg daily today prior to arrival felt funny check the blood pressure was 190/120 became more anxious when EMS came blood pressure was 218/140 no headache no chest pain or palpitation EMS gave him 5 mg of IV Lopressor and blood pressure decreased to 182/117 Related Data Previous Rx's Medication Instructions Recorded acetaminophen 500 mg tablet 1,000 mg (2 x 500 mg) PO QID PRN 09/14/20 (Tylenol Extra Strength) fever or pain #14 tabs albuterol sulfate 0.63 mg/3 mL 0.63 mg (3 mL) inhalation QID PRN 09/14/20 solution for nebulization shortness of breath or wheezing #75 mL albuterol sulfate 90 mcg/actuation 1 inh inhalation QID PRN shortness 09/14/20 aerosol inhaler of breath or wheezing #8.5 grams azithromycin 250 mg tablet See Rx Instructions PO .COMPLEX #6 09/14/20 tabs codeine 10 mg-guaifenesin 100 mg/5 5 ml PO Q6H PRN cold symptoms #120 09/14/20 mL oral liquid (Guaifenesin AC) mL ibuprofen 800 mg tablet 800 mg PO Q8H PRN pain #14 tabs 09/14/20 nebulizers (AeroEclipse II #1 ea 09/14/20 Nebulizer) lorazepam 1 mg tablet (Ativan) 1 mg PO BEDTIME PRN anxiety/sleep 07/23/23 #20 tabs Allergies Allergy/AdvReac Type Severity Reaction Status Date / Time diazepam [DIAZEPAM] Allergy Severe SYNCOPY Verified 07/22/23 22:28 animal dander Allergy Unknown Unknown Verified 07/22/23 22:28 pollen extracts Allergy Unknown Unknown Verified 07/22/23 22:28 buspirone AdvReac Unknown Abdominal Verified 07/22/23 22:28 Pain trazodone AdvReac Unknown Alopecia Verified 07/22/23 22:28 Environmental Allergy Unknown Unknown Uncoded 07/22/23 22:28 Review of Systems Review of Systems: Yes all other systems are reviewed and are negative PMFSH Past Medical History Medical History Asthma Surgical History History of hand surgery Social History Social History Smoked in Last 30 Days: No Use of substances other than those prescribed or required for medical reasons: No Advance Directives: No Advance Directives Information Provided: No Physical Exam ED Vital Signs: Vital Signs - 24 hr 07/22/23 22:29 07/22/23 22:34 07/23/23 00:13 Temperature 98.2 F 98.2 F 98.4 F Pulse Rate 70 69 69 Respiratory Rate 12 12 20 Blood Pressure 167/104 H 172/104 H 174/99 H Pulse Oximetry 97 96 97 Oxygen Delivery Method Room Air Room Air Room Air 07/23/23 01:26 Temperature Pulse Rate 69 Respiratory Rate 14 Blood Pressure 155/98 H Pulse Oximetry 96 Oxygen Delivery Method Room Air BMI result Body Mass Index 31.0 Const Other: Appearance: Alert. Oriented X3. No acute distress. Anxious Eyes: PERRLA, No Nystagmus ENT: Pharynx normal. Oral Mucosa moist Neck: Normal inspection. Neck supple. CVS: Normal heart rate and rhythm. Pulses normal. Respiratory: No respiratory distress. Equal air entry bilateral, no wheezing/rales/rhonchi Abdomen: Soft and nontender. Bowel sounds are present, no mass palpable, no CVA tenderness Skin: Skin warm and dry. Normal skin color. Normal skin turgor. Extremities: No lower extremity edema. No calf tenderness Neuro: Oriented X 3. No motor deficit. No sensory deficit.No cerebellar signs , cranial nerves II-XII intact Medications Administered Discontinued Medications Generic Name Dose Route Start Last Admin Trade Name Freq PRN Reason Stop Dose Admin Lorazepam 1 mg 07/23/23 00:07 07/23/23 00:10 Lorazepam 2 Mg/Ml Vial IVPUSH 07/23/23 00:08 1 mg STAT STA Administration Medical Decision Making Medical Decision Making [facility] Narrative: Patient with PTSD and hypertension and elevated blood pressure 218/140 by EMS taking valsartan 80 mg for last 3 days was given Lopressor 5 mg IV by EMS on arrival patient's blood pressure was 167/104 patient was anxious was given Ativan 1 mg blood pressure improved to 150/99 denied any headache no chest pain. Patient advised to take Ativan for anxiety/stress and increased the dose of valsartan blood pressure continues to be elevated and follow with PCP Differential Diagnosis Differential Diagnoses: The differential diagnosis associated with the presentation includes Accelerated hypertension/hypertension crisis Lab Data MDM Lab Attestation statement: I reviewed the patient's lab results. 07/22/23 22:43 07/22/23 22:43 Labs: Lab Results 07/22/23 Range/Units 22:43 WBC 6.7 (4.8-10.8) X10*3/uL RBC 4.60 (4.60-5.80) X10*6/uL Hgb 14.2 (14.0-18.0) g/dl Hct 39.7 L (42.0-52.0) % MCV 86.3 (80.0-98.0) fL MCH 30.9 (27.0-33.0) pg MCHC 35.8 (31.0-36.0) g/dl RDW 12.7 (11.0-16.0) % Plt Count 197 (160-400) X10*3/uL MPV 9.7 (9.4-12.4) fL Immature Gran % (Auto) 0.1 (0.0-0.4) % Neut % (Auto) 72.2 (45-73) % Lymph % (Auto) 18.2 L (20-40) % Story % (Auto) 8.5 (2-11) % Eos % (Auto) 0.6 (0-4) % Baso % (Auto) 0.4 (0-2) % Lymph # (Auto) 1.2 (1.2-4.9) X10*3/uL Story # (Auto) 0.6 (0.1-1.2) X10*3/uL Eos # (Auto) 0.0 (0.0-0.4) X10*3/uL Baso # (Auto) 0.0 (0.0-0.2) X10*3/uL Abs Immat Gran (auto) 0.01 (0.00-0.03) X10*3/uL Absolute Neuts (auto) 4.8 (2.0-8.3) x10*3/uL Absolute Nucleated RBC 0.000 (0.0-0.012) X10*3/uL Nucleated RBC % (auto) 0.0 (0.0-0.2) /100WBC Sodium 141 (135-145) mmol/L Potassium 3.5 (3.3-5.1) mmol/L Chloride 107 (96-108) mmol/L Carbon Dioxide 27 (22-29) mmol/L Anion Gap 11 L (12-20) BUN 10 (9-16) mg/dL Creatinine 0.86 (0.5-1.4) mg/dL Estim Creat Clear Calc 125.1 Estimated GFR > 60 Random Glucose 116 H (60-115) mg/dL Calcium 9.1 (8.4-10.2) mg/dL Total Bilirubin 0.4 (0.0-1.0) mg/dL AST 23 (5-37) U/L ALT 55 H (0-40) U/L Alkaline Phosphatase 64 (39-117) U/L Troponin I High Sens < 2.7 (<3.5-35.0) ng/L Total Protein 7.9 (6.5-8.0) g/dL Albumin 4.4 (3.5-5.0) g/dL Independent Interpretation I performed an independent interpretation of an: EKG Interpretation: Normal sinus rhythm heart rate 69 beats per minute normal interval normal axis no acute ST T wave changes no acute ischemia Discharge Plan Discharge Clinical Impression: Hypertension, Anxiety Patient Disposition: Home, Self-Care Instructions: Hypertension (ED), Anxiety (ED) Additional Instructions: Decrease salt and caffeine intake Check your blood pressure before you take the medicine and before you go to bed Normal blood pressure should be less than 140/90 Take medication for anxiety and sleep as prescribed If blood pressure higher than 160/100 you may take 80 mg of valsartan daily total of 160 mg Follow-up with your PCP Prescriptions: New lorazepam [Ativan] 1 mg tablet 1 mg PO BEDTIME PRN (Reason: anxiety/sleep) Qty: 20 0RF No Action (DME) AeroEclipse II Nebulizer Misc See Rx Instructions .ROUTE .MEDSUPPLY Qty: 1 0RF Rx Instructions: As directed azithromycin 250 mg tablet See Rx Instructions .ROUTE .COMPLEX Qty: 6 0RF Rx Instructions: take 500 mg today (day 1), then 250 mg for 4 days (days 2-5) albuterol sulfate 0.63 mg/3 mL solution for nebulization 0.63 mg inhalation QID PRN (Reason: shortness of breath or wheezing) Qty: 75 0RF albuterol sulfate 90 mcg/actuation HFA aerosol inhaler 1 inh inhalation QID PRN (Reason: shortness of breath or wheezing) Qty: 8.5 0RF codeine-guaifenesin [Guaifenesin AC] 10-100 mg/5 mL liquid 5 ml PO Q6H PRN (Reason: cold symptoms) Qty: 120 0RF ibuprofen 800 mg tablet 800 mg PO Q8H PRN (Reason: pain) Qty: 14 0RF acetaminophen [Tylenol Extra Strength] 500 mg tablet 1,000 mg PO QID PRN (Reason: fever or pain) Qty: 14 0RF Interventions: ED Discharge Assessment Last Done: 07/23/23 01:34 Discharge Date/Time: 07/23/23 01:34
[2023-07-23] MEDS: LORazepam 2 MG/ML VIAL 1 MG IVPUSH (00:10)
[2023-07-23 00:13] VITALS: BP 174/99; PULSE 69; RESP 20; TEMP 36.9; O2SAT 97
[2023-07-23 01:26] VITALS: BP 155/98; PULSE 69; RESP 14; O2SAT 96
== END 2023-07-23 01:34 | disposition home or self-care (01) ==
PROVIDERS: Emergency Provider Internal Medicine; PCP Internal Medicine
DX: F41.1 Generalized anxiety disorder (principal); F43.0 Acute stress reaction; I10 Essential (primary) hypertension; Z79.899 Other long term (current) drug therapy
CPT/HCPCS: 36415; 80053; 84484; 85025; 93005; 96374; 99284; J2060

== ENCOUNTER → 2023-07-22 22:28 | Outpatient (BNV) | payer BC, SELFPAY | PROVIDERS: Emergency Provider Internal Medicine; PCP Internal Medicine; Visit Provider Internal Medicine Cardiovascular Disease | DX: I10 Essential (primary) hypertension (principal) | CPT/HCPCS: 93010 ==

== ENCOUNTER 2023-07-24 02:31 | Emergency (ER) | payer BC, SELFPAY ==
[2023-07-24 02:34] VITALS: BP 172/101; BP 182/118; PULSE 88; PULSE 95; RESP 14; TEMP 36.9; O2SAT 96; BMI 30.5
--- NOTE | 2023-07-24 03:46 | ED.RECABL ---
HPI - Recheck/Abnormal Lab/Rx General Chief Complaint: Recheck/Abnormal Lab/Rx Stated Complaint: HTN Time Seen by Provider: 07/24/23 02:47 Source: patient Mode of arrival: EMS History of Present Illness HPI narrative: 53-year-old male who was recently started on blood pressure medication approximately 4 days ago, has history anxiety, arrives via EMS stating that he took his medication as prescribed but then states that later in the evening he began to feel dizzy, facial flushing and his blood pressure was noted to be elevated. Related Data Previous Rx's Medication Instructions Recorded acetaminophen 500 mg tablet 1,000 mg (2 x 500 mg) PO QID PRN 09/14/20 (Tylenol Extra Strength) fever or pain #14 tabs albuterol sulfate 0.63 mg/3 mL 0.63 mg (3 mL) inhalation QID PRN 09/14/20 solution for nebulization shortness of breath or wheezing #75 mL albuterol sulfate 90 mcg/actuation 1 inh inhalation QID PRN shortness 09/14/20 aerosol inhaler of breath or wheezing #8.5 grams azithromycin 250 mg tablet See Rx Instructions PO .COMPLEX #6 09/14/20 tabs codeine 10 mg-guaifenesin 100 mg/5 5 ml PO Q6H PRN cold symptoms #120 09/14/20 mL oral liquid (Guaifenesin AC) mL ibuprofen 800 mg tablet 800 mg PO Q8H PRN pain #14 tabs 09/14/20 nebulizers (AeroEclipse II #1 ea 09/14/20 Nebulizer) lorazepam 1 mg tablet (Ativan) 1 mg PO BEDTIME PRN anxiety/sleep 07/23/23 #20 tabs Allergies Allergy/AdvReac Type Severity Reaction Status Date / Time diazepam [DIAZEPAM] Allergy Severe SYNCOPY Verified 07/24/23 02:45 animal dander Allergy Unknown Unknown Verified 07/24/23 02:45 pollen extracts Allergy Unknown Unknown Verified 07/24/23 02:45 buspirone AdvReac Unknown Abdominal Verified 07/24/23 02:45 Pain trazodone AdvReac Unknown Alopecia Verified 07/24/23 02:45 Environmental Allergy Unknown Unknown Uncoded 07/22/23 22:28 Review of Systems Review of Systems: Pertinent positives and negatives as stated in HPI PMFSH Past Medical History Source: nursing notes reviewed Medical History Asthma Surgical History History of hand surgery Social History Social History Unable to assess alcohol history related to: Unknown Smoked in Last 30 Days: No Use of substances other than those prescribed or required for medical reasons: No Advance Directives: No Advance Directives Information Provided: No Physical Exam Vital Signs: Vital Signs: Last Vital Signs Temp 98.5 F 07/24/23 02:34 Pulse 72 07/24/23 04:00 Resp 18 07/24/23 04:00 BP 165/100 H 07/24/23 04:00 Pulse Ox 97 07/24/23 04:00 O2 Del Method Room Air 07/24/23 02:34 BMI result Body Mass Index 30.5 VITAL SIGNS: Reviewed. GENERAL: Well developed, well nourished, in no acute distress. HEAD: Normocephalic/atraumatic EYES: PERRLA, EOMI EARS: Ext canals without abnormality NOSE: Nares patent bilateral OROPHARYNX: no oral lesions noted, posterior pharynx clear NECK: Supple, no adenopathy LUNGS: Normal breath sounds. No adventitious sounds or accessory muscle use. SpO2<97> CARDIOVASCULAR: Regular rate and rhythm without noted murmurs ABDOMEN: Soft, non-tender, non-distended with bowel sounds. MUSCULOSKELETAL: No tenderness, deformities, or effusions noted on gross inspection. EXTREMITIES: No cyanosis, clubbing or edema. SKIN: Inspection of the skin reveals no rashes NEUROLOGIC: Alert and oriented x 4. Strength and sensation to light touch were grossly intact x 4, no facial asymmetry, no pronator drift, cranial nerves 2-12 are grossly intact. Medications Administered Discontinued Medications Generic Name Dose Route Start Last Admin Trade Name Freq PRN Reason Stop Dose Admin Amlodipine Besylate 7.5 mg 07/24/23 04:08 07/24/23 04:18 Amlodipine Besylate 2.5 Mg Tablet PO 07/24/23 04:09 7.5 mg ONCE ONE Administration Protocol Medical Decision Making Medical Decision Making MDM Narrative: 53-year-old male with history and clinical presentation that on review of prior documentation appears to be combination poorly-controlled blood pressure and anxiety. Patient is nonfocal and has no chest pain. I am only able to appreciate a prescription for 80 mg of valsartan and patient endorses that an ED provider increased that to 160 and he states that throughout the day he feels well but then in the evening notes that his blood pressure increases once again. EKG is not significant for ischemic changes and patient is otherwise provided with 7.5 mg of Norvasc this evening and strongly encouraged to contact his primary care doctor 1st thing in the morning to arrange for an adjustment in his blood pressure medication. Differential Diagnosis Differential Diagnoses: The differential diagnosis associated with the presentation includes Please see the discussion above Admission/Observation Consideration of admission/observation: Escalation of care including admission/observation considered Please see the discussion above Independent Interpretation I performed an independent interpretation of an: EKG Interpretation: Normal sinus rhythm, HR-69, no STEMI, MS/QRS/QTC is within normal limits. External Record Review External record reviewed: Outpatient record, Prior outpatient labs and Prior outpatient radiology Chronic Conditions Patient?s care impacted by: Hypertension Anxiety Critical Care Time Critical Care Time Critical Care Time: Yes Total Critical Care Time: 30 Attestation: I personally attest to this time spent taking care of the patient. Discharge Plan Discharge Clinical Impression: Anxiety, Uncontrolled hypertension Patient Disposition: Home, Self-Care Instructions: DASH Eating Plan (ED), Hypertension (ED), Anxiety (ED) Additional Instructions: 1. Resume all home medications as prescribed. 2. It is exceedingly important that you contact your primary care doctor today to further discuss your blood pressure medication as well as your anxiety symptoms. Return to the ER for any worsening symptoms. Prescriptions: No Action (DME) AeroEclipse II Nebulizer Misc See Rx Instructions .ROUTE .MEDSUPPLY Qty: 1 0RF Rx Instructions: As directed azithromycin 250 mg tablet See Rx Instructions .ROUTE .COMPLEX Qty: 6 0RF Rx Instructions: take 500 mg today (day 1), then 250 mg for 4 days (days 2-5) albuterol sulfate 0.63 mg/3 mL solution for nebulization 0.63 mg inhalation QID PRN (Reason: shortness of breath or wheezing) Qty: 75 0RF albuterol sulfate 90 mcg/actuation HFA aerosol inhaler 1 inh inhalation QID PRN (Reason: shortness of breath or wheezing) Qty: 8.5 0RF codeine-guaifenesin [Guaifenesin AC] 10-100 mg/5 mL liquid 5 ml PO Q6H PRN (Reason: cold symptoms) Qty: 120 0RF ibuprofen 800 mg tablet 800 mg PO Q8H PRN (Reason: pain) Qty: 14 0RF acetaminophen [Tylenol Extra Strength] 500 mg tablet 1,000 mg PO QID PRN (Reason: fever or pain) Qty: 14 0RF lorazepam [Ativan] 1 mg tablet 1 mg PO BEDTIME PRN (Reason: anxiety/sleep) Qty: 20 0RF Referrals: Thomas Rosen MD [Primary Care Provider] -
[2023-07-24 04:00] VITALS: BP 165/100; PULSE 72; RESP 18; O2SAT 97
--- NOTE | 2023-07-24 04:10 | ECG_ITS ---
Test Reason : HYPERTENSION Blood Pressure : / mmHG Vent. Rate : 069 BPM Atrial Rate : 069 BPM P-R Int : 152 ms QRS Dur : 086 ms QT Int : 406 ms P-R-T Axes : 039 017 029 degrees QTc Int : 435 ms Normal sinus rhythm Normal ECG When compared with ECG of 22-JUL-2023 22:28, No significant change was found Referred By: Pam Taylor Electronically Signed By:Buck Hughes
[2023-07-24] MEDS: amLODIPine Besylate 2.5 MG TABLET 7.5 MG PO (04:18)
== END 2023-07-24 04:45 | disposition home or self-care (01) ==
PROVIDERS: Emergency Provider Student in an Organized Health Care Education/Training Program; PCP Internal Medicine
DX: F41.1 Generalized anxiety disorder (principal); F43.0 Acute stress reaction; I10 Essential (primary) hypertension; Z79.899 Other long term (current) drug therapy
CPT/HCPCS: 93005; 99283; 99284

== ENCOUNTER → 2023-07-24 04:10 | Outpatient (BNV) | payer BC, SELFPAY | PROVIDERS: Emergency Provider Student in an Organized Health Care Education/Training Program; PCP Internal Medicine; Visit Provider Internal Medicine Cardiovascular Disease | DX: I10 Essential (primary) hypertension (principal) | CPT/HCPCS: 93010 ==

== ENCOUNTER 2023-08-30 21:02 | Emergency (ER) | payer BC, SELFPAY ==
--- NOTE | 2023-08-30 | ECG_ITS ---
Test Reason : DIZZINESS Blood Pressure : / mmHG Vent. Rate : 075 BPM Atrial Rate : 075 BPM P-R Int : 152 ms QRS Dur : 092 ms QT Int : 362 ms P-R-T Axes : 040 023 045 degrees QTc Int : 404 ms Normal sinus rhythm Normal ECG When compared with ECG of 24-JUL-2023 04:14, No significant change was found Referred By: Generic ED Physician Electronically Signed By:Buck Hughes
[2023-08-30 21:09] VITALS: BP 119/85; BP 174/80; PULSE 81; PULSE 83; RESP 16; TEMP 37; O2SAT 98; BMI 27.1
[2023-08-30 21:32] LABS: MANUAL DIFF FLAG NO
[2023-08-30 21:45] LABS: Basophils Percent Auto 0.4 % (0-2); Eosinophils Absolute Auto 0.1 X10*3/uL (0.0-0.4); Eosinophils Percent Auto 1.8 % (0-4); Hemoglobin 13.5 g/dl (14.0-18.0); Imm Gran Abs Auto 0.02 X10*3/uL (0.00-0.03); Imm Gran Pct Auto 0.3 % (0.0-0.4); Lymphocytes Absolute Auto 1.3 X10*3/uL (1.2-4.9); Lymphocytes Percent Auto 17.6 % (20-40); Mean Corpuscular HGB Conc 35.5 g/dl (31.0-36.0); Mean Corpuscular Hemoglobin 30.8 pg (27.0-33.0); Mean Corpuscular Volume 86.6 fL (80.0-98.0); Mean Platelet Volume 10.2 fL (9.4-12.4); Monocytes Absolute Auto 0.7 X10*3/uL (0.1-1.2); Monocytes Percent Auto 9.3 % (2-11); Neutrophils Absolute Auto 5.1 x10*3/uL (2.0-8.3); Neutrophils Percent Auto 70.6 % (45-73); Platelet Count 190 X10*3/uL (160-400); Red Blood Count 4.39 X10*6/uL (4.60-5.80); Red Cell Distribution Width 12.2 % (11.0-16.0); White Blood Count 7.2 X10*3/uL (4.8-10.8)
[2023-08-30 21:52] LABS: Alanine Aminotransferase 41 U/L (0-40); Albumin Level 4.3 g/dL (3.5-5.0); Alkaline Phosphatase 64 U/L (39-117); Anion Gap 13 (12-20); Aspartate Amino Transferase 17 U/L (5-37); Bilirubin Total 0.5 mg/dL (0.0-1.0); Blood Urea Nitrogen 11 mg/dL (9-16); Calcium 9.3 mg/dL (8.4-10.2); Carbon Dioxide 28 mmol/L (22-29); Chloride 106 mmol/L (96-108); Creatinine Clr Calc Pharmacy 93.9; Estimated Glomerular Filt Rate > 60; Glucose Random 92 mg/dL (60-115); Sodium 143 mmol/L (135-145); Total Protein 7.7 g/dL (6.5-8.0)
[2023-08-30 21:59] LABS: Troponin-I High Sensitivity < 2.7 ng/L (<3.5-35.0)
[2023-08-31 01:24] VITALS: BP 143/94; PULSE 73; RESP 17; TEMP 36.6; O2SAT 98
--- NOTE | 2023-08-31 01:34 | PC.NURSE ---
Pt ca&ox4, no signs of distress. Pt denies pain. Pt reports anxiety and dizziness, believes its due to new meds. Plan of care ongoing.
--- NOTE | 2023-08-31 01:38 | ED.GENADULT ---
HPI - General Adult General Chief complaint: General Medical Stated complaint: DIZZINESS WHEN STANDING Time Seen by Provider: 08/31/23 01:38 Source: patient Mode of arrival: ambulatory Limitations: no limitations History of Present Illness HPI narrative: Patient history of anxiety/panic attacks on multiple medication the past now it is taking Wellbutrin 150 mg for last 1 week, feels more anxious, checked her blood pressure at home was 190/140 repeat was 170/100 by EMS on arrival it was 119/85 Related Data Previous Rx's ?Medication ?Instructions ?Recorded acetaminophen 500 mg tablet 1,000 mg (2 x 500 mg) PO QID PRN 09/14/20 (Tylenol Extra Strength) fever or pain #14 tabs albuterol sulfate 0.63 mg/3 mL 0.63 mg (3 mL) inhalation QID PRN 09/14/20 solution for nebulization shortness of breath or wheezing #75 mL albuterol sulfate 90 mcg/actuation 1 inh inhalation QID PRN shortness 09/14/20 aerosol inhaler of breath or wheezing #8.5 grams azithromycin 250 mg tablet See Rx Instructions PO .COMPLEX #6 09/14/20 tabs codeine 10 mg-guaifenesin 100 mg/5 5 ml PO Q6H PRN cold symptoms #120 09/14/20 mL oral liquid (Guaifenesin AC) mL ibuprofen 800 mg tablet 800 mg PO Q8H PRN pain #14 tabs 09/14/20 nebulizers (AeroEclipse II #1 ea 09/14/20 Nebulizer) lorazepam 1 mg tablet (Ativan) 1 mg PO BEDTIME PRN anxiety/sleep 07/23/23 #20 tabs lorazepam 1 mg tablet (Ativan) 1 mg PO BEDTIME PRN Anxiety/sleep 08/31/23 #10 tabs Allergies Allergy/AdvReac Type Severity Reaction Status Date / Time diazepam [DIAZEPAM] Allergy Severe SYNCOPY Verified 08/30/23 21:09 animal dander Allergy Unknown Unknown Verified 08/30/23 21:09 pollen extracts Allergy Unknown Unknown Verified 08/30/23 21:09 buspirone AdvReac Unknown Abdominal Verified 08/30/23 21:09 Pain trazodone AdvReac Unknown Alopecia Verified 08/30/23 21:09 Environmental Allergy Unknown Unknown Uncoded 07/22/23 22:28 Review of Systems Review of Systems: Yes all other systems are reviewed and are negative [facility] Past Medical History Medical History Asthma Surgical History History of hand surgery Social History Social History Unable to assess alcohol history related to: Unknown Smoked in Last 30 Days: No Use of substances other than those prescribed or required for medical reasons: Yes Substance Use Type: Marijuana Advance Directives: No Advance Directives Information Provided: No Physical Exam ED Vital Signs: Vital Signs - 24 hr 08/30/23 21:09 08/31/23 01:24 08/31/23 02:42 Temperature 98.6 F 97.9 F 97.9 F Pulse Rate 81 73 78 Respiratory Rate 16 17 18 Blood Pressure 119/85 143/94 H 143/94 H Pulse Oximetry 98 98 100 Oxygen Delivery Method Room Air Room Air Room Air BMI result Body Mass Index 27.1 Appearance: Alert. Oriented X3. No acute distress. Anxious Eyes: PERRLA, No Nystagmus ENT: Pharynx normal. Oral Mucosa moist Neck: Normal inspection. Neck supple. CVS: Normal heart rate and rhythm. Pulses normal. Respiratory: No respiratory distress. Equal air entry bilateral, no wheezing/rales/rhonchi Abdomen: Soft and nontender. Bowel sounds are present, Skin: Skin warm and dry. Normal skin color. Normal skin turgor. Extremities: No lower extremity edema. No calf tenderness Neuro: Oriented X 3. No motor deficit. No sensory deficit.No cerebellar signs , cranial nerves II-XII intact Medical Decision Making Medical Decision Making [facility] Narrative: Patient with anxiety/panic attack will give him Ativan Lab Data [facility] Lab Attestation statement: I reviewed the patient's lab results. 08/30/23 21:28 08/30/23 21:28 Labs: Lab Results 08/30/23 Range/Units 21:28 WBC 7.2 (4.8-10.8) X10*3/uL RBC 4.39 L (4.60-5.80) X10*6/uL Hgb 13.5 L (14.0-18.0) g/dl Hct 38.0 L (42.0-52.0) % MCV 86.6 (80.0-98.0) fL MCH 30.8 (27.0-33.0) pg MCHC 35.5 (31.0-36.0) g/dl RDW 12.2 (11.0-16.0) % Plt Count 190 (160-400) X10*3/uL MPV 10.2 (9.4-12.4) fL Immature Gran % (Auto) 0.3 (0.0-0.4) % Neut % (Auto) 70.6 (45-73) % Lymph % (Auto) 17.6 L (20-40) % [place] % (Auto) 9.3 (2-11) % Eos % (Auto) 1.8 (0-4) % Baso % (Auto) 0.4 (0-2) % Lymph # (Auto) 1.3 (1.2-4.9) X10*3/uL [place] # (Auto) 0.7 (0.1-1.2) X10*3/uL Eos # (Auto) 0.1 (0.0-0.4) X10*3/uL Baso # (Auto) 0.0 (0.0-0.2) X10*3/uL Abs Immat Gran (auto) 0.02 (0.00-0.03) X10*3/uL Absolute Neuts (auto) 5.1 (2.0-8.3) x10*3/uL Absolute Nucleated RBC 0.000 (0.0-0.012) X10*3/uL Nucleated RBC % (auto) 0.0 (0.0-0.2) /100WBC Sodium 143 (135-145) mmol/L Potassium 4.0 (3.3-5.1) mmol/L Chloride 106 (96-108) mmol/L Carbon Dioxide 28 (22-29) mmol/L Anion Gap 13 (12-20) BUN 11 (9-16) mg/dL Creatinine 1.01 (0.5-1.4) mg/dL Estim Creat Clear Calc 93.9 Estimated GFR > 60 Random Glucose 92 (60-115) mg/dL Calcium 9.3 (8.4-10.2) mg/dL Total Bilirubin 0.5 (0.0-1.0) mg/dL AST 17 (5-37) U/L ALT 41 H (0-40) U/L Alkaline Phosphatase 64 (39-117) U/L Troponin I High Sens < 2.7 (<3.5-35.0) ng/L Total Protein 7.7 (6.5-8.0) g/dL Albumin 4.3 (3.5-5.0) g/dL Discharge Plan Discharge Clinical Impression: Anxiety attack Patient Disposition: Home, Self-Care Instructions: Anxiety (ED) Additional Instructions: Medication for anxiety as prescribed Follow with PCP/psychiatrist Prescriptions: New lorazepam [Ativan] 1 mg tablet 1 mg PO BEDTIME PRN (Reason: Anxiety/sleep) Qty: 10 0RF No Action (DME) AeroEclipse II Nebulizer Misc See Rx Instructions .ROUTE .MEDSUPPLY Qty: 1 0RF Rx Instructions: As directed azithromycin 250 mg tablet See Rx Instructions .ROUTE .COMPLEX Qty: 6 0RF Rx Instructions: take 500 mg today (day 1), then 250 mg for 4 days (days 2-5) albuterol sulfate 0.63 mg/3 mL solution for nebulization 0.63 mg inhalation QID PRN (Reason: shortness of breath or wheezing) Qty: 75 0RF albuterol sulfate 90 mcg/actuation HFA aerosol inhaler 1 inh inhalation QID PRN (Reason: shortness of breath or wheezing) Qty: 8.5 0RF codeine-guaifenesin [Guaifenesin AC] 10-100 mg/5 mL liquid 5 ml PO Q6H PRN (Reason: cold symptoms) Qty: 120 0RF ibuprofen 800 mg tablet 800 mg PO Q8H PRN (Reason: pain) Qty: 14 0RF acetaminophen [Tylenol Extra Strength] 500 mg tablet 1,000 mg PO QID PRN (Reason: fever or pain) Qty: 14 0RF lorazepam [Ativan] 1 mg tablet 1 mg PO BEDTIME PRN (Reason: anxiety/sleep) Qty: 20 0RF Referrals: Shemar Millan MD [Physician] - 1 week Interventions: ED Discharge Assessment Last Done: 08/31/23 02:42 Discharge Date/Time: 08/31/23 02:42 Print Language: Hebrew
[2023-08-31 02:42] VITALS: BP 143/94; PULSE 78; RESP 18; TEMP 36.6; O2SAT 100
== END 2023-08-31 02:42 | disposition home or self-care (01) ==
PROVIDERS: Emergency Provider Internal Medicine; PCP Internal Medicine
DX: F41.0 Panic disorder [episodic paroxysmal anxiety] (principal); J45.909 Unspecified asthma, uncomplicated; Z79.899 Other long term (current) drug therapy; Z88.8 Allergy status to other drugs, medicaments and biological substances
CPT/HCPCS: 36415; 80053; 84484; 85025; 93005; 99283; 99284

== ENCOUNTER → 2023-08-30 21:21 | Outpatient (BNV) | payer BC, SELFPAY | PROVIDERS: Emergency Provider Internal Medicine; PCP Internal Medicine; Visit Provider Internal Medicine Cardiovascular Disease | DX: R42 Dizziness and giddiness (principal) | CPT/HCPCS: 93010 ==

== ENCOUNTER 2023-10-26 18:53 | Emergency (ER) | payer BC, SELFPAY ==
[2023-10-26 19:01] VITALS: BP 136/80; PULSE 81; RESP 18; TEMP 37.2; O2SAT 96; BMI 31.2
[2023-10-26 19:36] LABS: MANUAL DIFF FLAG NO
[2023-10-26 19:42] LABS: Basophils Percent Auto 0.3 % (0-2); Eosinophils Absolute Auto 0.1 X10*3/uL (0.0-0.4); Eosinophils Percent Auto 2.1 % (0-4); Hematocrit 36.7 % (42.0-52.0); Hemoglobin 13.2 g/dl (14.0-18.0); Imm Gran Abs Auto 0.02 X10*3/uL (0.00-0.03); Imm Gran Pct Auto 0.3 % (0.0-0.4); Lymphocytes Absolute Auto 1.5 X10*3/uL (1.2-4.9); Lymphocytes Percent Auto 24.1 % (20-40); Mean Corpuscular Hemoglobin 32.5 pg (27.0-33.0); Mean Corpuscular Volume 90.4 fL (80.0-98.0); Monocytes Absolute Auto 0.7 X10*3/uL (0.1-1.2); Monocytes Percent Auto 11.2 % (2-11); Neutrophils Absolute Auto 3.8 x10*3/uL (2.0-8.3); Platelet Count 201 X10*3/uL (160-400); Red Blood Count 4.06 X10*6/uL (4.60-5.80); Red Cell Distribution Width 14.2 % (11.0-16.0); White Blood Count 6.1 X10*3/uL (4.8-10.8)
[2023-10-26 19:54] LABS: Alanine Aminotransferase 56 U/L (0-40); Albumin Level 4.2 g/dL (3.5-5.0); Alkaline Phosphatase 54 U/L (39-117); Anion Gap 17 (12-20); Aspartate Amino Transferase 29 U/L (5-37); Bilirubin Total 0.6 mg/dL (0.0-1.0); Blood Urea Nitrogen 9 mg/dL (9-16); Calcium 9.2 mg/dL (8.4-10.2); Carbon Dioxide 21 mmol/L (22-29); Chloride 107 mmol/L (96-108); Creatinine Clr Calc Pharmacy 105.7; Estimated Glomerular Filt Rate > 60; Glucose Random 112 mg/dL (60-115); Potassium 4.2 mmol/L (3.3-5.1); Sodium 141 mmol/L (135-145); Total Protein 7.6 g/dL (6.5-8.0)
== END 2023-10-26 23:19 | disposition left against medical advice (07) ==
LOC: HO.ED 22:58
PROVIDERS: Emergency Provider Emergency Medicine; PCP Internal Medicine
DX: H53.9 Unspecified visual disturbance (principal); R42 Dizziness and giddiness
CPT/HCPCS: 36415; 80053; 85025; 99281; 99283

== ENCOUNTER 2024-01-12 10:39 | Emergency (ER) | payer BC, SELFPAY ==
--- NOTE | 2024-01-12 10:47 | ED_ITS ---
HPI - General Adult General Chief complaint: General Medical Stated complaint: HIGH BP 153/110 PER EMS Time Seen by Provider: 01/12/24 10:44 Source: patient, EMS, RN notes reviewed and old records reviewed Mode of arrival: EMS Limitations: no limitations History of Present Illness ED Provider: TOMMY AVERY PA-C HPI narrative: 53 year old male with pmhx significant for asthma, hypertension, anxiety, and PTSD presents to the ED today via EMS from home for evaluation of elevated blood pressure readings. BP reading at home reported by patient 180/111 this morning. On EMS arrival, BP 160/96. Patient reports slight headache and dizziness. Admits to waking up with increased anxiety today. No identifiable trigger however states that this is common with his PTSD. Patient reported associated chest tightness to RN however on my questioning, patient denies any chest pain or chest tightness. Patient reports he is compliant with his antihypertensives ( Denies fever, chills, dizziness, vision changes, palpitations, N/V, LE pain/swelling. Related Data Previous Rx's ?Medication ?Instructions ?Recorded acetaminophen 500 mg tablet 1,000 mg (2 x 500 mg) PO QID PRN 09/14/20 (Tylenol Extra Strength) fever or pain #14 tabs albuterol sulfate 0.63 mg/3 mL 0.63 mg (3 mL) inhalation QID PRN 09/14/20 solution for nebulization shortness of breath or wheezing #75 mL albuterol sulfate 90 mcg/actuation 1 inh inhalation QID PRN shortness 09/14/20 aerosol inhaler of breath or wheezing #8.5 grams azithromycin 250 mg tablet See Rx Instructions PO .COMPLEX #6 09/14/20 tabs codeine 10 mg-guaifenesin 100 mg/5 5 ml PO Q6H PRN cold symptoms #120 09/14/20 mL oral liquid (Guaifenesin AC) mL ibuprofen 800 mg tablet 800 mg PO Q8H PRN pain #14 tabs 09/14/20 nebulizers (AeroEclipse II #1 ea 09/14/20 Nebulizer) lorazepam 1 mg tablet (Ativan) 1 mg PO BEDTIME PRN anxiety/sleep 07/23/23 #20 tabs lorazepam 1 mg tablet (Ativan) 1 mg PO BEDTIME PRN Anxiety/sleep 04/14/24 #10 tabs lorazepam 1 mg tablet (Ativan) 1 mg PO DAILY PRN anxiety #10 tabs 01/12/24 Allergies Allergy/AdvReac Type Severity Reaction Status Date / Time diazepam [DIAZEPAM] Allergy Severe SYNCOPY Verified 01/12/24 10:59 animal dander Allergy Unknown Unknown Verified 01/12/24 10:59 pollen extracts Allergy Unknown Unknown Verified 01/12/24 10:59 buspirone AdvReac Unknown Abdominal Verified 01/12/24 10:59 Pain trazodone AdvReac Unknown Alopecia Verified 01/12/24 10:59 Environmental Allergy Unknown Unknown Uncoded 07/22/23 22:28 Review of Systems 2 Review of Systems: Constitutional: No fever, chills, fatigue, night sweats, weight changes ENT/Mouth: No ear pain, hearing loss, nasal congestion, sinus pain, rhinorrhea, sore throat Eyes: No eye pain, swelling, redness, vision changes, discharge Cardio: No chest pain, palpitations, LEDESMA, orthopnea, peripheral edema Pulm: No SOB, cough, sputum, wheezing, dyspnea, hemoptysis GI: No nausea, vomiting, hematemesis, abdominal pain, diarrhea, constipation, hematochezia, melena : No irregular bleeding, dysuria, frequency, urgency, hesitancy, hematuria, flank pain, urinary flow changes, urinary incontinence or retention MSK: No back pain, neck pain, joint pain, myalgias Skin: No lesions, rashes Neuro: No weakness, numbness, paresthesias, LOC, dizziness, +headache Psych: No panic, depression, SI/HI, AH/VH, +anxiety All other systems reviewed and are negative. [facility] Past Medical History Attestation statement: The following information was validated with the patient. Source: old records reviewed and nursing notes reviewed Medical History Asthma Surgical History History of hand surgery Social History Social History Unable to assess alcohol history related to: Unknown Substance Use Type: Marijuana Advance Directives: No Advance Directives Information Provided: No Physical Exam ED Vital Signs: Vital Signs - 24 hr 01/12/24 10:58 08/26/24 11:35 Temperature 98.6 F 99.3 F Pulse Rate 66 69 Respiratory Rate 18 22 H Blood Pressure 148/83 H 148/83 H Pulse Oximetry 99 97 Oxygen Delivery Method Room Air Room Air BMI result Body Mass Index 32.5 Slightly hypertensive to 148/83, vitals otherwise wnl. General: Well appearing, in no acute distress. Skin: Warm, dry, intact. No rashes or lesions. Head: Normocephalic, atraumatic. EENT: Hearing is intact b/l. Conjunctiva clear. Sclera is anicteric. PERRLA. EOM intact. Moist mucous membranes.? Neck: Supple without LAD. FROM. Trachea midline.? Cardiac: Chest wall symmetric. RRR. No MRG. No JVD. Lungs: Normal respiratory effort without accessory muscle use. CTA bilaterally. No rales, rhonchi, or wheezes.? Abdomen: Soft, non-tender, non-distended. No rebound tenderness or guarding. Positive BS x4. Back: No midline spinous or paraspinal tenderness. No step off deformity. Ext: Upper and lower extremities atraumatic, without tenderness, deformity, swelling or erythema. Full ROM throughout. Capillary refill <2 seconds in all extremities. Pulses 2+ equal and bilateral. Neuro: AOx3. Normal speech. CN 2-12 grossly intact. Strength 5/5 intact throughout. Sensation intact to light touch. NV intact distally. Reflexes 2+ bilaterally. Ambulating with steady gait. Psych: Appropriate mood and affect. Responds appropriately to questions. Course Course Course Narrative: 1153 -- CBC without leukocytosis or left shift. Chronic normocytic anemia when compared to priors, H and H stable. Chemistry without acute electrolyte abnormality requiring intervention. Troponin flat. EKG showing normal sinus rhythm with a rate of 68 beats per minute, QT 3, QTC 418, no acute ischemic changes or ST elevations. ACS unlikely. 1215-- patient's blood pressure has normalized in the ED after receiving IV Ativan. on arrival to ED, blood pressure 148/83. Now 120s over 80s. Patient does not require another dose of his antihypertensive at this time. On re- evaluation, patient reports symptom improvement after receiving IV Ativan. I have suspicion that patient's symptoms and elevated blood pressure are related to his anxiety. Will send prescription of Ativan to pharmacy however I did advise patient to follow up with his primary care doctor regarding further scripts as his medications may need to be adjusted. he verbalizes understanding. > Patient has remained stable throughout ED visit today. Discussed worrisome signs and symptoms and when to return to the ED. All questions answered at this time. Patient is agreeable with disposition and stable for discharge. Medications Administered Discontinued Medications Generic Name Dose Route Start Last Admin Trade Name Sherie PRN Reason Stop Dose Admin Lorazepam 1 mg 01/12/24 11:01 01/12/24 11:41 Lorazepam 2 Mg/Ml Vial IVPUSH 01/12/24 11:02 1 mg ONCE ONE Administration Medical Decision Making Medical Decision Making [facility] Narrative: 53 year old male with pmhx significant for asthma, hypertension, anxiety, and PTSD presents to the ED today via EMS from home for evaluation of elevated blood pressure readings. Patient is slightly hypertensive to 148/83, improved since patient's blood pressure reading at home this morning. Vitals are otherwise WNL. He is nontoxic appearing in no acute distress. Sitting comfortably on the exam bed. He tells me he feels extremely anxious and is requesting something for his anxiety. RRR. Lungs are clear bilaterally. No JVD or peripheral edema. Exam is nonfocal. Cerebellum is intact. He is ambulating with steady gait to the restroom. AOX3. no nystagmus. Differential diagnosis include essential hypertension, hypertensive urgency vs hypertensive emergency, anxiety, migraine vs tension headache. Unlikely ACS, arrhythmia, ICH, cerebellar stroke. Plan for ekg, basic labs, troponin and re-evaluation. Differential Diagnosis Differential Diagnoses: The differential diagnosis associated with the presentation includes as above. Admission/Observation not indicated Lab Data [facility] Lab Attestation statement: I reviewed the patient's lab results. As above 01/12/24 11:17 01/12/24 11:17 Labs: Lab Results 01/12/24 Range/Units 11:17 WBC 6.2 (4.8-10.8) X10*3/uL RBC 4.37 L (4.60-5.80) X10*6/uL Hgb 13.8 L (14.0-18.0) g/dl Hct 37.9 L (42.0-52.0) % MCV 86.7 (80.0-98.0) fL MCH 31.6 (27.0-33.0) pg MCHC 36.4 H (31.0-36.0) g/dl RDW 12.2 (11.0-16.0) % Plt Count 172 (160-400) X10*3/uL MPV 10.0 (9.4-12.4) fL Immature Gran % (Auto) 0.3 (0.0-0.4) % Neut % (Auto) 64.6 (45-73) % Lymph % (Auto) 22.2 (20-40) % [place] % (Auto) 10.5 (2-11) % Eos % (Auto) 2.1 (0-4) % Baso % (Auto) 0.3 (0-2) % Lymph # (Auto) 1.4 (1.2-4.9) X10*3/uL [place] # (Auto) 0.7 (0.1-1.2) X10*3/uL Eos # (Auto) 0.1 (0.0-0.4) X10*3/uL Baso # (Auto) 0.0 (0.0-0.2) X10*3/uL Abs Immat Gran (auto) 0.02 (0.00-0.03) X10*3/uL Absolute Neuts (auto) 4.0 (2.0-8.3) x10*3/uL Absolute Nucleated RBC 0.000 (0.0-0.012) X10*3/uL Nucleated RBC % (auto) 0.0 (0.0-0.2) /100WBC Sodium 141 (135-145) mmol/L Potassium 3.8 (3.3-5.1) mmol/L Chloride 106 (96-108) mmol/L Carbon Dioxide 29 (22-29) mmol/L Anion Gap 10 L (12-20) BUN 6 L (9-16) mg/dL Creatinine 0.85 (0.5-1.4) mg/dL Estim Creat Clear Calc 129.5 Estimated GFR > 60 Random Glucose 120 H (60-115) mg/dL Calcium 9.0 (8.4-10.2) mg/dL Magnesium 2.0 (1.6-2.6) mg/dL Total Bilirubin 0.6 (0.0-1.0) mg/dL AST 23 (5-37) U/L ALT 54 H (0-40) U/L Alkaline Phosphatase 59 (39-117) U/L Troponin I High Sens < 2.7 (<3.5-35.0) ng/L Total Protein 7.4 (6.5-8.0) g/dL Albumin 4.1 (3.5-5.0) g/dL Urine Color Yellow Urine Appearance Clear Urine pH 6.5 (5.0-9.0) Ur Specific [place] <= 1.005 (1.005-1.025) Urine Protein Negative (Neg-Trace) mg/dL Urine Glucose (UA) Negative (Negative) mg/dL Urine Ketones Negative (Negative) mg/dL Urine Blood Negative (Negative) Urine Nitrite Negative (Negative) Ur Leukocyte Esterase Negative (Negative) Independent Interpretation I performed an independent interpretation of an: EKG Interpretation: EKG showing normal sinus rhythm with a rate of 68 beats per minute, QT 394, QTC 418, no acute ischemic changes or ST elevations External Record Review External record reviewed: Inpatient record Prescription Management I considered prescription management with: Other (ativan) Chronic Conditions Patient?s care impacted by: Hypertension Social Determinants Patient?s care significantly limited by Social Determinants of Health including: Other Social Determinant of Health Critical Care Time Critical Care Time Critical Care Time: No Discharge Plan Discharge Clinical Impression: Hypertension, Anxiety Patient Disposition: Home, Self-Care Instructions: Chronic Hypertension (ED) Additional Instructions: You were evaluated in the ED today for elevated blood pressure. Your blood work today is reassuring. Your EKG is normal. Your urine does not demonstrate infection. Your blood pressure was initially elevated to 180/111, 160/96, and 148/83 and improved once you were treated with ativan. Elevated blood pressure likely related to your anxiety. A prescription for Ativan has been sent to your pharmacy. Please continue all home medications as prescribed. Please follow-up with your prescriber as your medications will likely need to be adjusted to better control your anxiety. Return to the ED with new or worsening symptoms. In the case of an emergency call 911. Prescriptions: New lorazepam [Ativan] 1 mg tablet 1 mg PO DAILY PRN (Reason: anxiety) Qty: 10 0RF No Action (DME) AeroEclipse II Nebulizer Misc See Rx Instructions .ROUTE .MEDSUPPLY Qty: 1 0RF Rx Instructions: As directed azithromycin 250 mg tablet See Rx Instructions .ROUTE .COMPLEX Qty: 6 0RF Rx Instructions: take 500 mg today (day 1), then 250 mg for 4 days (days 2-5) albuterol sulfate 0.63 mg/3 mL solution for nebulization 0.63 mg inhalation QID PRN (Reason: shortness of breath or wheezing) Qty: 75 0RF albuterol sulfate 90 mcg/actuation HFA aerosol inhaler 1 inh inhalation QID PRN (Reason: shortness of breath or wheezing) Qty: 8.5 0RF codeine-guaifenesin [Guaifenesin AC] 10-100 mg/5 mL liquid 5 ml PO Q6H PRN (Reason: cold symptoms) Qty: 120 0RF ibuprofen 800 mg tablet 800 mg PO Q8H PRN (Reason: pain) Qty: 14 0RF acetaminophen [Tylenol Extra Strength] 500 mg tablet 1,000 mg PO QID PRN (Reason: fever or pain) Qty: 14 0RF lorazepam [Ativan] 1 mg tablet 1 mg PO BEDTIME PRN (Reason: anxiety/sleep) Qty: 20 0RF lorazepam [Ativan] 1 mg tablet 1 mg PO BEDTIME PRN (Reason: Anxiety/sleep) Qty: 10 0RF Referrals: Thomas Rosen MD [Primary Care Provider] - Print Language: Spanish
--- NOTE | 2024-01-12 10:49 | ECG_ITS ---
Test Reason : HYPERTENSIVE Blood Pressure : / mmHG Vent. Rate : 068 BPM Atrial Rate : 068 BPM P-R Int : 162 ms QRS Dur : 092 ms QT Int : 394 ms P-R-T Axes : 035 019 030 degrees QTc Int : 418 ms Normal sinus rhythm Normal ECG When compared with ECG of 30-AUG-2023 21:21, No significant change was found Referred By: Anabel Loo Electronically Signed By:GLORIA MOY
[2024-01-12 10:53] VITALS: BP 168/96; PULSE 80; O2SAT 98
[2024-01-12 10:58] VITALS: BP 148/83; PULSE 66; RESP 18; TEMP 37; O2SAT 99; BMI 32.5
[2024-01-12 11:21] LABS: MANUAL DIFF FLAG NO
[2024-01-12 11:22] LABS: Basophils Percent Auto 0.3 % (0-2); Eosinophils Absolute Auto 0.1 X10*3/uL (0.0-0.4); Eosinophils Percent Auto 2.1 % (0-4); Hematocrit 37.9 % (42.0-52.0); Hemoglobin 13.8 g/dl (14.0-18.0); Imm Gran Abs Auto 0.02 X10*3/uL (0.00-0.03); Imm Gran Pct Auto 0.3 % (0.0-0.4); Lymphocytes Absolute Auto 1.4 X10*3/uL (1.2-4.9); Lymphocytes Percent Auto 22.2 % (20-40); Mean Corpuscular HGB Conc 36.4 g/dl (31.0-36.0); Mean Corpuscular Hemoglobin 31.6 pg (27.0-33.0); Mean Corpuscular Volume 86.7 fL (80.0-98.0); Monocytes Absolute Auto 0.7 X10*3/uL (0.1-1.2); Monocytes Percent Auto 10.5 % (2-11); Neutrophils Percent Auto 64.6 % (45-73); Platelet Count 172 X10*3/uL (160-400); Red Blood Count 4.37 X10*6/uL (4.60-5.80); Red Cell Distribution Width 12.2 % (11.0-16.0); White Blood Count 6.2 X10*3/uL (4.8-10.8)
[2024-01-12 11:25] LABS: Appearance Urine Clear; Color Urine Yellow; Glucose Urine UA Negative (Negative); Leukocyte Esterase Urine Negative (Negative); Nitrite Urine Negative (Negative); PH 6.5 (5.0-9.0); Specific Gravity - Urine <= 1.005 (1.005-1.025); Urine Blood Negative (Negative); Urine Ketones Negative (Negative); Urine Protein Negative (Neg-Trace)
[2024-01-12 11:35] VITALS: BP 148/83; PULSE 69; RESP 22; TEMP 37.4; O2SAT 97
[2024-01-12 11:36] LABS: Alanine Aminotransferase 54 U/L (0-40); Albumin Level 4.1 g/dL (3.5-5.0); Alkaline Phosphatase 59 U/L (39-117); Anion Gap 10 (12-20); Aspartate Amino Transferase 23 U/L (5-37); Bilirubin Total 0.6 mg/dL (0.0-1.0); Blood Urea Nitrogen 6 mg/dL (9-16); Carbon Dioxide 29 mmol/L (22-29); Chloride 106 mmol/L (96-108); Creatinine Clr Calc Pharmacy 129.5; Estimated Glomerular Filt Rate > 60; Glucose Random 120 mg/dL (60-115); Potassium 3.8 mmol/L (3.3-5.1); Sodium 141 mmol/L (135-145); Total Protein 7.4 g/dL (6.5-8.0)
--- NOTE | 2024-01-12 11:36 | MHC.EDTECH ---
helped patient walk to the bathroom stand by independent
[2024-01-12] MEDS: LORazepam 2 MG/ML VIAL 1 MG IVPUSH (11:41)
--- NOTE | 2024-01-12 11:43 | PC.NURSE ---
Pt's EMS IV infiltrated, removed. New #22 to RH PIV placed.
[2024-01-12 11:53] LABS: Troponin-I High Sensitivity < 2.7 ng/L (<3.5-35.0)
[2024-01-12 12:27] VITALS: BP 148/83; PULSE 69; RESP 22; TEMP 37.4; O2SAT 97
== END 2024-01-12 12:28 | disposition home or self-care (01) ==
PROVIDERS: Physician Assistant Medical; Emergency Provider Emergency Medicine; PCP Internal Medicine
DX: F41.1 Generalized anxiety disorder (principal); R07.89 Other chest pain; I10 Essential (primary) hypertension; F43.10 Post-traumatic stress disorder, unspecified; Z79.899 Other long term (current) drug therapy
CPT/HCPCS: 36415; 80053; 81003; 83735; 84484; 85025; 93005; 96374; 99284; J2060

== ENCOUNTER 2024-03-30 00:48 | Emergency (ER) | payer OTHER, SELFPAY ==
--- NOTE | 2024-03-30 | ECG_ITS ---
Test Reason : chest pain Blood Pressure : / mmHG Vent. Rate : 065 BPM Atrial Rate : 065 BPM P-R Int : 156 ms QRS Dur : 082 ms QT Int : 406 ms P-R-T Axes : 029 010 030 degrees QTc Int : 422 ms Normal sinus rhythm Normal ECG When compared with ECG of 12-JAN-2024 10:58, No significant change was found Referred By: Jyothi Payne Electronically Signed By:Buck Hughes
[2024-03-30 01:07] VITALS: BP 134/94; BP 164/108; PULSE 78; PULSE 83; RESP 16; TEMP 37; O2SAT 95; O2SAT 98; BMI 30.8
--- NOTE | 2024-03-30 01:47 | ED_ITS ---
HPI - Chest Pain General Chief Complaint: Chest Pain Stated Complaint: Hypertension, Dizzy, CP, SOB Time Seen by Provider: 03/30/24 01:15 Source: patient and EMS Mode of arrival: EMS Limitations: no limitations History of Present Illness ED Provider: EFREN HPI narrative: 53 yo male with HTN, GERD, anxiety on nightly ativan here with c/o watching a TV show did forget to take his ativan tonight - felt weird brain foggy and chest tightness just [employer] no numbness, weakness, nausea or difficulty walking - patient then checked BP 210/140. He is compliant with his carvedilol. He still feels he is slightly foggy but no other symptoms. MD complaint: chest heaviness Onset (ago): minute(s) ([employer]) Timing of current episode: now resolved Prior episodes: No Onset: during rest Pain location: substernal Pain radiation: none Severity: mild Quality: tightness Relieving factors: nothing Exacerbating factors: other Associated symptoms: sense of impending doom Treatment prior to arrival: none Related Data Previous Rx's ?Medication ?Instructions ?Recorded acetaminophen 500 mg tablet 1,000 mg (2 x 500 mg) PO QID PRN 09/14/20 (Tylenol Extra Strength) fever or pain #14 tabs albuterol sulfate 0.63 mg/3 mL 0.63 mg (3 mL) inhalation QID PRN 09/14/20 solution for nebulization shortness of breath or wheezing #75 mL albuterol sulfate 90 mcg/actuation 1 inh inhalation QID PRN shortness 09/14/20 aerosol inhaler of breath or wheezing #8.5 grams azithromycin 250 mg tablet See Rx Instructions PO .COMPLEX #6 09/14/20 tabs codeine 10 mg-guaifenesin 100 mg/5 5 ml PO Q6H PRN cold symptoms #120 09/14/20 mL oral liquid (Guaifenesin AC) mL ibuprofen 800 mg tablet 800 mg PO Q8H PRN pain #14 tabs 09/14/20 nebulizers (AeroEclipse II #1 ea 09/14/20 Nebulizer) lorazepam 1 mg tablet (Ativan) 1 mg PO BEDTIME PRN anxiety/sleep 07/23/23 #20 tabs lorazepam 1 mg tablet (Ativan) 1 mg PO BEDTIME PRN Anxiety/sleep 08/31/23 #10 tabs lorazepam 1 mg tablet (Ativan) 1 mg PO DAILY PRN anxiety #10 tabs 01/12/24 Allergies Allergy/AdvReac Type Severity Reaction Status Date / Time diazepam [DIAZEPAM] Allergy Severe SYNCOPY Verified 03/30/24 01:10 animal dander Allergy Unknown Unknown Verified 03/30/24 01:10 pollen extracts Allergy Unknown Unknown Verified 03/30/24 01:10 buspirone AdvReac Unknown Abdominal Verified 03/30/24 01:10 Pain trazodone AdvReac Unknown Alopecia Verified 03/30/24 01:10 Environmental Allergy Unknown Unknown Uncoded 03/30/24 01:10 Review of Systems 2 Review of Systems: Constitutional : No Fever, No Chills, No Fatigue ENT/Mouth : No sore throat, No Rhinorrhea Eyes: No Eye Pain, No Swelling, No Redness Cardiovascular : pos Chest Pain, No SOB, No Dyspnea on Exertion Respiratory : No Cough, No Sputum Gastrointestinal : No Nausea, No Vomiting, No Diarrhea, No abdominal Pain Genitourinary : No Dysuria, No Urinary Frequency, No Hematuria, Musculoskeletal : No joint pain, No Myalgias, No Joint Swelling Skin : No Skin Lesions, No rash Neuro : No Weakness, No Numbness, pos Dizziness, no Headache Psych : No Anxiety/Panic, No Depression Heme/Lymph: No Bruising, No Bleeding,No Lymphadenopathy Endocrine : No Polyuria, No Polydipsia All other systems reviewed and are negative [facility] Past Medical History Attestation statement: The following information was validated with the patient. Source: old records reviewed Medical History GERD (gastroesophageal reflux disease) Anxiety HTN (hypertension) Asthma Surgical History History of hand surgery Social History Social History Unable to assess alcohol history related to: Unknown Substance Use Type: Marijuana Advance Directives: No Advance Directives Information Provided: No Do you have a plan to hurt others: No Plan Physical Exam 2 Vital Signs: Vital Signs: Last Vital Signs Temp 98.6 F 03/30/24 01:07 Pulse 78 03/30/24 01:07 Resp 16 03/30/24 01:07 BP 134/94 H 03/30/24 01:07 Pulse Ox 95 03/30/24 01:07 O2 Del Method Room Air 03/30/24 01:07 BMI result Body Mass Index 30.8 Appearance: Alert. Oriented X3. No acute distress. Eyes: Pupils equal, round and reactive to light. ENT: Pharynx normal. Neck: Normal inspection. Neck supple. CVS: Normal heart rate and rhythm. Pulses normal. Respiratory: No respiratory distress. Breath sounds normal. Abdomen: Soft and nontender. Skin: Skin warm and dry. Normal skin color. Normal skin turgor. Extremities: No lower extremity edema. No calf ttp Neuro: Oriented X 3. No motor deficit. No sensory deficit. no drift no ataxia Medications Administered Discontinued Medications Generic Name Dose Route Start Last Admin Trade Name Freq PRN Reason Stop Dose Admin Lorazepam 1 mg 03/30/24 01:29 03/30/24 02:40 Lorazepam 1 Mg Tablet PO 03/30/24 01:30 1 mg ONCE ONE Administration Medical Decision Making Medical Decision Making [facility] Narrative: 53 yo male with HTN, GERD, anxiety on nightly ativan here with c/o atypical chest tightness, feeling brain fog but no focal deficits or ataxia to suggest posterior stroke at this time EKG, basic labs, trop x 2, PO ativan Differential Diagnosis Differential Diagnoses: The differential diagnosis associated with the presentation includes anxiety, atypical chest pain no neuro symptoms to suggest posterior stroke Admission/Observation Consideration of admission/observation: Escalation of care including admission/observation considered EKG non ischemic trop flat x 2 BP stable Lab Data [facility] Lab Attestation statement: I reviewed the patient's lab results. 03/30/24 02:45 03/30/24 02:45 Labs: Lab Results 03/30/24 Range/Units 02:45 WBC 8.1 (4.8-10.8) X10*3/uL RBC 4.35 L (4.60-5.80) X10*6/uL Hgb 13.6 L (14.0-18.0) g/dl Hct 37.6 L (42.0-52.0) % MCV 86.4 (80.0-98.0) fL MCH 31.3 (27.0-33.0) pg MCHC 36.2 H (31.0-36.0) g/dl RDW 13.0 (11.0-16.0) % Plt Count 178 (160-400) X10*3/uL MPV 10.3 (9.4-12.4) fL Immature Gran % (Auto) 0.2 (0.0-0.4) % Neut % (Auto) 69.4 (45-73) % Lymph % (Auto) 19.4 L (20-40) % [place] % (Auto) 8.9 (2-11) % Eos % (Auto) 1.7 (0-4) % Baso % (Auto) 0.4 (0-2) % Lymph # (Auto) 1.6 (1.2-4.9) X10*3/uL [place] # (Auto) 0.7 (0.1-1.2) X10*3/uL Eos # (Auto) 0.1 (0.0-0.4) X10*3/uL Baso # (Auto) 0.0 (0.0-0.2) X10*3/uL Abs Immat Gran (auto) 0.02 (0.00-0.03) X10*3/uL Absolute Neuts (auto) 5.6 (2.0-8.3) x10*3/uL Absolute Nucleated RBC 0.000 (0.0-0.012) X10*3/uL Nucleated RBC % (auto) 0.0 (0.0-0.2) /100WBC Sodium 142 (135-145) mmol/L Potassium 3.9 (3.3-5.1) mmol/L Chloride 107 (96-108) mmol/L Carbon Dioxide 23 (22-29) mmol/L Anion Gap 16 (12-20) BUN 9 (9-16) mg/dL Creatinine 0.79 (0.5-1.4) mg/dL Estim Creat Clear Calc 135.7 Estimated GFR > 60 Random Glucose 131 H (60-115) mg/dL Calcium 9.4 (8.4-10.2) mg/dL Magnesium 2.0 (1.6-2.6) mg/dL Troponin I High Sens < 2.7 (<3.5-35.0) ng/L Independent Interpretation I performed an independent interpretation of an: EKG Interpretation: Rate: 65 Rhythm: NSR [place]: normal Normal P waves. Normal ABDI. Normal QRS complex. ST T wave : normal no CHERRY qTC: 422 prior studies: no acute ischemia The study has been interpreted contemporaneously by me. . Independent Historian Clinical information obtained from an independent historian. History obtained from or confirmed by: EMS External Record Review External record reviewed: Office record Discharge Plan Discharge Clinical Impression: Atypical chest pain, Anxiety Patient Disposition: Home, Self-Care Instructions: Anxiety (ED), Chest Pain (ED) Additional Instructions: labs normal EKG reassuring troponin heart test negative x 2. return for any worsening symptoms or concerns please follow up with your primary care doctor Prescriptions: No Action (DME) AeroEclipse II Nebulizer Misc See Rx Instructions .ROUTE .MEDSUPPLY Qty: 1 0RF Rx Instructions: As directed azithromycin 250 mg tablet See Rx Instructions .ROUTE .COMPLEX Qty: 6 0RF Rx Instructions: take 500 mg today (day 1), then 250 mg for 4 days (days 2-5) albuterol sulfate 0.63 mg/3 mL solution for nebulization 0.63 mg inhalation QID PRN (Reason: shortness of breath or wheezing) Qty: 75 0RF albuterol sulfate 90 mcg/actuation HFA aerosol inhaler 1 inh inhalation QID PRN (Reason: shortness of breath or wheezing) Qty: 8.5 0RF codeine-guaifenesin [Guaifenesin AC] 10-100 mg/5 mL liquid 5 ml PO Q6H PRN (Reason: cold symptoms) Qty: 120 0RF ibuprofen 800 mg tablet 800 mg PO Q8H PRN (Reason: pain) Qty: 14 0RF acetaminophen [Tylenol Extra Strength] 500 mg tablet 1,000 mg PO QID PRN (Reason: fever or pain) Qty: 14 0RF lorazepam [Ativan] 1 mg tablet 1 mg PO BEDTIME PRN (Reason: anxiety/sleep) Qty: 20 0RF lorazepam [Ativan] 1 mg tablet 1 mg PO BEDTIME PRN (Reason: Anxiety/sleep) Qty: 10 0RF lorazepam [Ativan] 1 mg tablet 1 mg PO DAILY PRN (Reason: anxiety) Qty: 10 0RF Stand Alone Forms: Work/School Release Print Language: [place]an
[2024-03-30] MEDS: LORazepam 1 MG TABLET PO (02:40)
[2024-03-30 02:49] LABS: Basophils Percent Auto 0.4 % (0-2); Eosinophils Absolute Auto 0.1 X10*3/uL (0.0-0.4); Eosinophils Percent Auto 1.7 % (0-4); Hematocrit 37.6 % (42.0-52.0); Hemoglobin 13.6 g/dl (14.0-18.0); Imm Gran Abs Auto 0.02 X10*3/uL (0.00-0.03); Imm Gran Pct Auto 0.2 % (0.0-0.4); Lymphocytes Absolute Auto 1.6 X10*3/uL (1.2-4.9); Lymphocytes Percent Auto 19.4 % (20-40); MANUAL DIFF FLAG NO; Mean Corpuscular HGB Conc 36.2 g/dl (31.0-36.0); Mean Corpuscular Hemoglobin 31.3 pg (27.0-33.0); Mean Corpuscular Volume 86.4 fL (80.0-98.0); Mean Platelet Volume 10.3 fL (9.4-12.4); Monocytes Absolute Auto 0.7 X10*3/uL (0.1-1.2); Monocytes Percent Auto 8.9 % (2-11); Neutrophils Absolute Auto 5.6 x10*3/uL (2.0-8.3); Neutrophils Percent Auto 69.4 % (45-73); Platelet Count 178 X10*3/uL (160-400); Red Blood Count 4.35 X10*6/uL (4.60-5.80); White Blood Count 8.1 X10*3/uL (4.8-10.8)
[2024-03-30 03:06] LABS: Anion Gap 16 (12-20); Blood Urea Nitrogen 9 mg/dL (9-16); Calcium 9.4 mg/dL (8.4-10.2); Carbon Dioxide 23 mmol/L (22-29); Chloride 107 mmol/L (96-108); Creatinine Clr Calc Pharmacy 135.7; Estimated Glomerular Filt Rate > 60; Glucose Random 131 mg/dL (60-115); Potassium 3.9 mmol/L (3.3-5.1); Sodium 142 mmol/L (135-145)
[2024-03-30 03:14] LABS: Troponin-I High Sensitivity < 2.7 ng/L (<3.5-35.0)
[2024-03-30 05:07] LABS: Troponin-I High Sensitivity 2.7 ng/L (<3.5-35.0)
[2024-03-30 06:13] VITALS: BP 115/73; PULSE 73; RESP 16; TEMP 36.8; O2SAT 99
== END 2024-03-30 06:14 | disposition home or self-care (01) ==
PROVIDERS: Emergency Provider Emergency Medicine; PCP Internal Medicine
DX: R07.9 Chest pain, unspecified (principal); F41.9 Anxiety disorder, unspecified; I10 Essential (primary) hypertension; K21.9 Gastro-esophageal reflux disease without esophagitis; J45.909 Unspecified asthma, uncomplicated; Z79.899 Other long term (current) drug therapy
CPT/HCPCS: 36415; 80048; 83735; 84484; 85025; 93005; 99283; 99284

== ENCOUNTER → 2024-03-30 02:53 | Outpatient (BNV) | payer OTHER, SELFPAY | PROVIDERS: Emergency Provider Emergency Medicine; PCP Internal Medicine; Visit Provider Internal Medicine Cardiovascular Disease | DX: R07.9 Chest pain, unspecified (principal) | CPT/HCPCS: 93010 ==

== ENCOUNTER 2024-03-31 00:28 | Emergency (ER) | payer OTHER, SELFPAY ==
--- NOTE | 2024-03-31 00:46 | ECG_ITS ---
Test Reason : chest pain Blood Pressure : / mmHG Vent. Rate : 065 BPM Atrial Rate : 065 BPM P-R Int : 142 ms QRS Dur : 088 ms QT Int : 398 ms P-R-T Axes : 023 001 020 degrees QTc Int : 413 ms Normal sinus rhythm Normal ECG When compared with ECG of 30-MAR-2024 02:53, No significant change was found Referred By: Generic ED Physician Electronically Signed By:Buck Hughes
[2024-03-31 00:52] VITALS: BP 160/105; PULSE 80; O2SAT 95
[2024-03-31 00:58] VITALS: BP 134/101; PULSE 66; RESP 12; TEMP 36.9; O2SAT 96; BMI 29.8
[2024-03-31 01:39] LABS: MANUAL DIFF FLAG NO
[2024-03-31 01:40] LABS: Basophils Percent Auto 0.3 % (0-2); Eosinophils Absolute Auto 0.1 X10*3/uL (0.0-0.4); Eosinophils Percent Auto 1.6 % (0-4); Hematocrit 37.6 % (42.0-52.0); Hemoglobin 13.3 g/dl (14.0-18.0); Imm Gran Abs Auto 0.02 X10*3/uL (0.00-0.03); Imm Gran Pct Auto 0.3 % (0.0-0.4); Lymphocytes Absolute Auto 1.7 X10*3/uL (1.2-4.9); Lymphocytes Percent Auto 24.3 % (20-40); Mean Corpuscular HGB Conc 35.4 g/dl (31.0-36.0); Mean Corpuscular Hemoglobin 30.8 pg (27.0-33.0); Mean Platelet Volume 10.2 fL (9.4-12.4); Monocytes Absolute Auto 0.6 X10*3/uL (0.1-1.2); Monocytes Percent Auto 8.9 % (2-11); Neutrophils Absolute Auto 4.6 x10*3/uL (2.0-8.3); Neutrophils Percent Auto 64.6 % (45-73); Platelet Count 180 X10*3/uL (160-400); Red Blood Count 4.32 X10*6/uL (4.60-5.80); Red Cell Distribution Width 13.1 % (11.0-16.0); White Blood Count 7.1 X10*3/uL (4.8-10.8)
--- NOTE | 2024-03-31 01:40 | MHC.EDTECH ---
at this time this tech obtained bloodwork from this pt. Pt tolerated the procedure well with no discomfort noted. Pt then was disconnected fromA/B monitor i order to use the bathroom, and was reconnected to the A/B monitor upon returning to his room. Call light given for safety.
[2024-03-31 01:53] LABS: Anion Gap 15 (12-20); Blood Urea Nitrogen 11 mg/dL (9-16); Calcium 9.5 mg/dL (8.4-10.2); Carbon Dioxide 24 mmol/L (22-29); Chloride 106 mmol/L (96-108); Creatinine Clr Calc Pharmacy 128.8; Estimated Glomerular Filt Rate > 60; Glucose Random 101 mg/dL (60-115); Sodium 141 mmol/L (135-145)
[2024-03-31 02:03] LABS: Troponin-I High Sensitivity < 2.7 ng/L (<3.5-35.0)
[2024-03-31 02:23] VITALS: BP 129/80; PULSE 57; RESP 14; TEMP 36.7; O2SAT 96
[2024-03-31 04:44] VITALS: BP 129/80; PULSE 60; RESP 16; TEMP 36.6; O2SAT 95
[2024-03-31 06:22] VITALS: BP 133/83; PULSE 53; RESP 13; TEMP 36.7; O2SAT 96
--- NOTE | 2024-03-31 06:30 | PC.NURSE ---
pt resting comfortably, pain still resolved at this time
--- NOTE | 2024-03-31 06:44 | ED_ITS ---
HPI - Chest Pain General Chief Complaint: Chest Pain Stated Complaint: HYPERTENTSION Time Seen by Provider: 03/31/24 06:42 Source: patient and EMS Mode of arrival: EMS Limitations: no limitations History of Present Illness ED Provider: Delilah Francis PA-C HPI narrative: Patient is a 53 year old assigned male at with a history of asthma and HTN on Carvedilol presenting to the emergency department today with high blood pressure at home. Patient states that this is the second day in a row that his blood pressure has gone very high. Patient states that he feels OK now. Patient states that he does not follow with a nitroglycerin separator operator for his blood pressure, just his PCP. Patient denies any dizziness, lightheadedness, abdominal pain, nausea, vomiting, fever, chills, blurry vision, double vision, loss of vision, chest pain, difficulty breathing, shortness of breath, back pain, night sweats, pain with urination, increased urinary frequency, increased urinary urgency, blood in his urine or stool, syncope or a near syncopal episode, recent trauma or falls, bowel incontinence, bladder incontinence, or any other complaints at this time. Related Data Previous Rx's ?Medication ?Instructions ?Recorded acetaminophen 500 mg tablet 1,000 mg (2 x 500 mg) PO QID PRN 09/14/20 (Tylenol Extra Strength) fever or pain #14 tabs albuterol sulfate 0.63 mg/3 mL 0.63 mg (3 mL) inhalation QID PRN 09/14/20 solution for nebulization shortness of breath or wheezing #75 mL albuterol sulfate 90 mcg/actuation 1 inh inhalation QID PRN shortness 09/14/20 aerosol inhaler of breath or wheezing #8.5 grams azithromycin 250 mg tablet See Rx Instructions PO .COMPLEX #6 09/14/20 tabs codeine 10 mg-guaifenesin 100 mg/5 5 ml PO Q6H PRN cold symptoms #120 09/14/20 mL oral liquid (Guaifenesin AC) mL ibuprofen 800 mg tablet 800 mg PO Q8H PRN pain #14 tabs 09/14/20 nebulizers (AeroEclipse II #1 ea 09/14/20 Nebulizer) lorazepam 1 mg tablet (Ativan) 1 mg PO BEDTIME PRN anxiety/sleep 07/23/23 #20 tabs lorazepam 1 mg tablet (Ativan) 1 mg PO BEDTIME PRN Anxiety/sleep 08/31/23 #10 tabs lorazepam 1 mg tablet (Ativan) 1 mg PO DAILY PRN anxiety #10 tabs 01/12/24 lisinopril 5 mg tablet 5 mg PO DAILY #30 tabs 03/31/24 Allergies Allergy/AdvReac Type Severity Reaction Status Date / Time diazepam [DIAZEPAM] Allergy Severe SYNCOPY Verified 03/31/24 01:00 animal dander Allergy Unknown Unknown Verified 03/31/24 01:00 pollen extracts Allergy Unknown Unknown Verified 03/31/24 01:00 buspirone AdvReac Unknown Abdominal Verified 03/31/24 01:00 Pain trazodone AdvReac Unknown Alopecia Verified 03/31/24 01:00 Environmental Allergy Unknown Unknown Uncoded 03/31/24 01:00 Review of Systems 2 Constitutional: Constitutional: Reports no additional constitutional complaints, Denies chills, Denies fever(s) and Denies night sweats Eyes: Eyes: Reports no additional eye complaints, Denies blurry vision, Denies change in vision, Denies diplopia, Denies eye discharge, Denies loss of vision and Denies eye pain ENT: Denies dizziness Cardiovascular: Cardiovascular: Reports no additional cardiovascular complaints, Denies chest pain, Denies lightheadedness, Denies Loss of Consciousness and Denies dyspnea Respiratory: Respiratory: Reports no additional respiratory complaints and Denies dyspnea Gastrointestinal: Gastrointestinal: Reports no additional gastrointestinal complaints, Denies abdominal pain, Denies melena, Denies hematochezia, Denies change in bowel habits and Denies change in stool character Genitourinary: Genitourinary: Reports no additional male genitourinary complaints, Denies hematuria, Denies oliguria, Denies difficulty urinating, Denies dysuria, Denies urinary frequency, Denies urinary hesitancy, Denies urinary incontinence and Denies urinary urgency Musculoskeletal: Musculoskeletal: Reports no additional musculoskeletal complaints, Denies numbness and Denies tingling Neurologic: Denies dizziness, Denies loss of vision, Denies numbness and Denies tingling Psychiatric: Psychiatric: Reports no additional psychiatric complaints Endocrine: Endocrine: Reports no additional endocrine complaints Hematologic/Lymphatic: Hematologic/Lymphatic: Reports no additional hematologic/lymphatic complaints Allergic/Immunologic: Allergic/Immunologic: Reports no additional allergic/immunologic complaints PMFSH Past Medical History Attestation statement: The following information was validated with the patient. Source: old records reviewed and nursing notes reviewed Medical History GERD (gastroesophageal reflux disease) Anxiety HTN (hypertension) Asthma Surgical History History of hand surgery Social History Social History Unable to assess alcohol history related to: Unknown Smoked in Last 30 Days: No Use of substances other than those prescribed or required for medical reasons: No Substance Use Type: Marijuana Advance Directives: No Advance Directives Information Provided: No Physical Exam 2 Vital Signs: Vital Signs: Last Vital Signs Temp 98.6 F 03/31/24 07:55 Pulse 68 03/31/24 07:55 Resp 18 03/31/24 07:55 BP 129/85 03/31/24 07:55 Pulse Ox 98 03/31/24 07:55 O2 Del Method Room Air 03/31/24 07:55 BMI result Body Mass Index 29.8 Const: General: cooperative, no acute distress, alert and awake Nutritional Appearance: well nourished Orientation/consciousness: patient oriented x3 Limitations: no limitations HEENT: Head: Yes normal to inspection and Yes atraumatic Ears: hearing grossly normal bilaterally and external ears normal General nose exam: Normal external nose present, no nasal discharge noted and no epistaxis Face and sinus: Yes normal facial exam, No abrasion and No laceration Mouth: Normal oral and palatal mucosa present, no drooling and no muffled voice Eyes: General: appearance normal, both eyes and all related structures P eriorbital: periorbital findings normal Eyelids: Yes eyelids normal C onjunctivae: conjunctivae normal Pupils: Equal, round and reactive pupils present EOM: EOMs intact bilaterally Neck: Neck: Yes normal visual inspection, Yes full ROM and Yes no lymphadenopathy Chest: Chest palpation & inspection: normal inspection of the chest Resp: Effort & Inspection: normal respiratory effort and able to speak in complete sentences GI: Inspection: Yes normal to inspection Neuro: General: patient oriented x3 and moves all extremities Cranial nerves: Yes Equal, round and reactive pupils present Cognition (Neuro): n ormal cognition Extrem: General: Yes normal to inspection, Yes full ROM and Yes capillary refill normal Psych: Appearance: grossly normal Mental Status: mental status grossly normal Affect: normal affect Attitude: cooperative Thought process: N ormal thought process present Thought content: Normal thought content present Insight: Good insight present (Psych) Medical Decision Making Medical Decision Making [facility] Narrative: Patient is a 53 year old assigned male at with a history of HTN presenting to the emergency department today with episodic high blood pressure. Patient's physical exam was unremarkable. Patient's blood work was unremarkable. Patient's EKG was unremarkable. I explained my physical exam findings as well as all test results to the patient. I answered all questions asked by the patient. Patient's blood pressure has remained stable while in the department. I consulted with my attending physician, Dr. Hatfield, who agreed it would be reasonable to start the patient on nightly 5mg Lisinopril to avoid these episodes of hypertension. I stressed the importance of the patient taking his medication as directed (either prescribed or as the over the counter packaging recommends). I stressed the importance of the patient following up with his primary care provider. I stressed the importance of the patient returning to the emergency department immediately if his symptoms were to worsen or if he were to develop any dizziness, shortness of breath, difficulty breathing, chest pain, blurry vision, loss of vision, nausea, vomiting, abdominal pain, fever, chills, back pain, or any other complaints. Patient verbalized agreement and understanding with this treatment plan and discharge. Differential Diagnosis Differential Diagnoses: The differential diagnosis associated with the presentation includes HTN Labile HTN Admission/Observation Consideration of admission/observation: Escalation of care including admission/observation considered Patient would have been admitted to the hospital had his work up had any findings where hospital admission was appropriate and his clinical presentation warranted hospital admission. Lab Data [facility] Lab Attestation statement: I reviewed the patient's lab results. My interpretation of these results are in the [facility] Rationale portion of this note. 03/31/24 01:35 03/31/24 01:35 Labs: Lab Results 03/31/24 Range/Units 01:35 WBC 7.1 (4.8-10.8) X10*3/uL RBC 4.32 L (4.60-5.80) X10*6/uL Hgb 13.3 L (14.0-18.0) g/dl Hct 37.6 L (42.0-52.0) % MCV 87.0 (80.0-98.0) fL MCH 30.8 (27.0-33.0) pg MCHC 35.4 (31.0-36.0) g/dl RDW 13.1 (11.0-16.0) % Plt Count 180 (160-400) X10*3/uL MPV 10.2 (9.4-12.4) fL Immature Gran % (Auto) 0.3 (0.0-0.4) % Neut % (Auto) 64.6 (45-73) % Lymph % (Auto) 24.3 (20-40) % [place] % (Auto) 8.9 (2-11) % Eos % (Auto) 1.6 (0-4) % Baso % (Auto) 0.3 (0-2) % Lymph # (Auto) 1.7 (1.2-4.9) X10*3/uL [place] # (Auto) 0.6 (0.1-1.2) X10*3/uL Eos # (Auto) 0.1 (0.0-0.4) X10*3/uL Baso # (Auto) 0.0 (0.0-0.2) X10*3/uL Abs Immat Gran (auto) 0.02 (0.00-0.03) X10*3/uL Absolute Neuts (auto) 4.6 (2.0-8.3) x10*3/uL Absolute Nucleated RBC 0.000 (0.0-0.012) X10*3/uL Nucleated RBC % (auto) 0.0 (0.0-0.2) /100WBC Sodium 141 (135-145) mmol/L Potassium 4.0 (3.3-5.1) mmol/L Chloride 106 (96-108) mmol/L Carbon Dioxide 24 (22-29) mmol/L Anion Gap 15 (12-20) BUN 11 (9-16) mg/dL Creatinine 0.82 (0.5-1.4) mg/dL Estim Creat Clear Calc 128.8 Estimated GFR > 60 Random Glucose 101 (60-115) mg/dL Calcium 9.5 (8.4-10.2) mg/dL Troponin I High Sens < 2.7 (<3.5-35.0) ng/L Independent Interpretation I performed an independent interpretation of an: EKG Interpretation: Vent. Rate: 065 BPM Atrial Rate: 065 BPM P-R Int: 142 ms QRS Dur: 088 ms QT Int: 398 ms P-R-T Axes: 023 001 020 degrees QTc Int: 413 ms Normal sinus rhythm Normal ECG When compared with ECG of 30-MAR-2024 02:53, No significant change was found DD/ [id number] Independent Historian Clinical information obtained from an independent historian. History obtained from or confirmed by: EMS (EMS provided additional history and confirmed the history provided by the patient.) Discharge Plan Discharge Clinical Impression: Labile blood pressure Patient Disposition: Home, Self-Care Instructions: Hypertension (ED) Additional Instructions: Take the new medication I'm prescribing you at NIGHT with your nightly dose of other medication. Consider following up with a nitroglycerin separator operator to manage your blood pressure. Blood pressure medication takes 4-6 weeks to work appropriately. Follow up with your primary care provider. Return to the emergency department immediately if your symptoms worsen or if you develop any dizziness, shortness of breath, difficulty breathing, chest pain, blurry vision, loss of vision, nausea, vomiting, abdominal pain, fever, chills, back pain, or any other complaints. Prescriptions: New lisinopril 5 mg tablet 5 mg PO DAILY Qty: 30 0RF No Action (DME) AeroEclipse II Nebulizer Misc See Rx Instructions .ROUTE .MEDSUPPLY Qty: 1 0RF Rx Instructions: As directed azithromycin 250 mg tablet See Rx Instructions .ROUTE .COMPLEX Qty: 6 0RF Rx Instructions: take 500 mg today (day 1), then 250 mg for 4 days (days 2-5) albuterol sulfate 0.63 mg/3 mL solution for nebulization 0.63 mg inhalation QID PRN (Reason: shortness of breath or wheezing) Qty: 75 0RF albuterol sulfate 90 mcg/actuation HFA aerosol inhaler 1 inh inhalation QID PRN (Reason: shortness of breath or wheezing) Qty: 8.5 0RF codeine-guaifenesin [Guaifenesin AC] 10-100 mg/5 mL liquid 5 ml PO Q6H PRN (Reason: cold symptoms) Qty: 120 0RF ibuprofen 800 mg tablet 800 mg PO Q8H PRN (Reason: pain) Qty: 14 0RF acetaminophen [Tylenol Extra Strength] 500 mg tablet 1,000 mg PO QID PRN (Reason: fever or pain) Qty: 14 0RF lorazepam [Ativan] 1 mg tablet 1 mg PO BEDTIME PRN (Reason: anxiety/sleep) Qty: 20 0RF lorazepam [Ativan] 1 mg tablet 1 mg PO BEDTIME PRN (Reason: Anxiety/sleep) Qty: 10 0RF lorazepam [Ativan] 1 mg tablet 1 mg PO DAILY PRN (Reason: anxiety) Qty: 10 0RF Referrals: [facility] [Provider Group] Thomas Rosen MD [Primary Care Provider] - Stand Alone Forms: Work/School Release Interventions: ED Discharge Assessment Last Done: 03/31/24 07:55 Discharge Date/Time: 03/31/24 07:56 Print Language: Moldovan
[2024-03-31 07:55] VITALS: BP 129/85; PULSE 68; RESP 18; TEMP 37; O2SAT 98
== END 2024-03-31 07:56 | disposition home or self-care (01) ==
PROVIDERS: Emergency Provider Student in an Organized Health Care Education/Training Program; PCP Internal Medicine
DX: R07.89 Other chest pain (principal); I10 Essential (primary) hypertension; Z79.899 Other long term (current) drug therapy
CPT/HCPCS: 36415; 80048; 84484; 85025; 93005; 99284; 99285

== ENCOUNTER → 2024-03-31 00:46 | Outpatient (BNV) | payer OTHER, SELFPAY | PROVIDERS: Emergency Provider Student in an Organized Health Care Education/Training Program; PCP Internal Medicine; Visit Provider Internal Medicine Cardiovascular Disease | DX: R07.9 Chest pain, unspecified (principal) | CPT/HCPCS: 93010 ==

== ENCOUNTER 2024-06-20 22:40 | Emergency (ER) | payer OTHER, SELFPAY ==
[2024-06-20 22:44] VITALS: BP 150/90; PULSE 90
[2024-06-20 23:04] VITALS: BP 158/98; PULSE 109; RESP 20; TEMP 36.9; O2SAT 96; BMI 31.2
[2024-06-20] MEDS: Ondansetron ODT 4 MG TAB.RAPDIS TRANSLINGU (23:09)
[2024-06-21 00:21] LABS: Basophils Percent Auto 0.1 % (0-2); Eosinophils Absolute Auto 0.1 X10*3/uL (0.0-0.4); Eosinophils Percent Auto 0.6 % (0-4); Hematocrit 42.7 % (42.0-52.0); Hemoglobin 15.6 g/dl (14.0-18.0); Imm Gran Abs Auto 0.04 X10*3/uL (0.00-0.03); Imm Gran Pct Auto 0.3 % (0.0-0.4); Lymphocytes Absolute Auto 0.3 X10*3/uL (1.2-4.9); Lymphocytes Percent Auto 2.1 % (20-40); MANUAL DIFF FLAG SCAN; Mean Corpuscular HGB Conc 36.5 g/dl (31.0-36.0); Mean Corpuscular Hemoglobin 31.5 pg (27.0-33.0); Mean Corpuscular Volume 86.3 fL (80.0-98.0); Mean Platelet Volume 9.8 fL (9.4-12.4); Monocytes Absolute Auto 0.7 X10*3/uL (0.1-1.2); Monocytes Percent Auto 4.5 % (2-11); Neutrophils Absolute Auto 13.4 x10*3/uL (2.0-8.3); Neutrophils Percent Auto 92.4 % (45-73); Platelet Count 189 X10*3/uL (160-400); Red Blood Count 4.95 X10*6/uL (4.60-5.80); Red Cell Distribution Width 12.7 % (11.0-16.0); SCAN SMEAR FLAG 1; White Blood Count 14.5 X10*3/uL (4.8-10.8)
[2024-06-21 00:36] LABS: Alanine Aminotransferase 58 U/L (0-40); Albumin Level 4.4 g/dL (3.5-5.0); Alkaline Phosphatase 61 U/L (39-117); Anion Gap 16 (12-20); Aspartate Amino Transferase 25 U/L (5-37); Bilirubin Total 0.9 mg/dL (0.0-1.0); Blood Urea Nitrogen 12 mg/dL (9-16); Carbon Dioxide 22 mmol/L (22-29); Chloride 108 mmol/L (96-108); Creatinine Clr Calc Pharmacy 130.1; Estimated Glomerular Filt Rate > 60; Glucose Random 109 mg/dL (60-115); Potassium 3.8 mmol/L (3.3-5.1); Sodium 142 mmol/L (135-145); Total Protein 8.3 g/dL (6.5-8.0)
[2024-06-21 00:38] LABS: SLIDE REVIEW VERIFIED
[2024-06-21 00:57] LABS: Influenza A PCR NEGATIVE (Negative); Influenza B PCR NEGATIVE (Negative); Resp Syncy Virus RNA Qual PCR NEGATIVE (Negative); SARS COV2 PCR INHOUSE NEGATIVE (Negative)
[2024-06-21 04:48] VITALS: BP 126/87; PULSE 103; RESP 16; TEMP 37.6; O2SAT 95
--- NOTE | 2024-06-21 05:40 | ED_ITS ---
HPI - Nausea/Vomiting/Diarrhea General Chief complaint: Nausea/Vomiting/Diarrhea Stated complaint: nausea/vomiting Time Seen by Provider: 06/21/24 05:39 Source: patient Mode of arrival: ambulatory Limitations: no limitations History of Present Illness ED Provider: Dr. Anshu Hatfield HPI Narrative: 54-year-old male with history of hypertension, asthma, anxiety who presents emergency department for evaluation of nausea, vomiting, diarrhea and abdominal pain with symptoms starting at 19:00 hours. Patient states that he has had constant vomiting since onset of his symptoms. He states he has had multiple episodes of diarrhea. He denied blood in the emesis or diarrhea. He points to his epigastric area when asked to localize his pain. He states the pain is a constant, burning sensation which is 4/10 at its worst. Patient denied fever but he did have chills. He complained of myalgias and arthralgias. He states he is feeling weak, fatigue, lightheaded Related Data Previous Rx's ?Medication ?Instructions ?Recorded acetaminophen 500 mg tablet 1,000 mg (2 x 500 mg) PO QID PRN 09/14/20 (Tylenol Extra Strength) fever or pain #14 tabs albuterol sulfate 0.63 mg/3 mL 0.63 mg (3 mL) inhalation QID PRN 09/14/20 solution for nebulization shortness of breath or wheezing #75 mL albuterol sulfate 90 mcg/actuation 1 inh inhalation QID PRN shortness 09/14/20 aerosol inhaler of breath or wheezing #8.5 grams azithromycin 250 mg tablet See Rx Instructions PO .COMPLEX #6 09/14/20 tabs codeine 10 mg-guaifenesin 100 mg/5 5 ml PO Q6H PRN cold symptoms #120 09/14/20 mL oral liquid (Guaifenesin AC) mL ibuprofen 800 mg tablet 800 mg PO Q8H PRN pain #14 tabs 09/14/20 nebulizers (AeroEclipse II #1 ea 09/14/20 Nebulizer) lorazepam 1 mg tablet (Ativan) 1 mg PO BEDTIME PRN anxiety/sleep 07/23/23 #20 tabs lorazepam 1 mg tablet (Ativan) 1 mg PO BEDTIME PRN Anxiety/sleep 08/31/23 #10 tabs lorazepam 1 mg tablet (Ativan) 1 mg PO DAILY PRN anxiety #10 tabs 01/12/24 lisinopril 5 mg tablet 5 mg PO DAILY #30 tabs 03/31/24 ondansetron 4 mg disintegrating 4 mg PO Q6-8H PRN nausea and 06/21/24 tablet vomiting #14 tabs Allergies Allergy/AdvReac Type Severity Reaction Status Date / Time diazepam [DIAZEPAM] Allergy Severe SYNCOPY Verified 06/20/24 23:05 animal dander Allergy Unknown Unknown Verified 06/20/24 23:05 pollen extracts Allergy Unknown Unknown Verified 06/20/24 23:05 buspirone AdvReac Unknown Abdominal Verified 06/20/24 23:05 Pain trazodone AdvReac Unknown Alopecia Verified 06/20/24 23:05 Environmental Allergy Unknown Unknown Uncoded 06/20/24 23:05 Review of Systems 2 Review of Systems: Yes all other systems are reviewed and are negative [facility] Past Medical History [facility] Narrative: Social history: He denies tobacco and alcohol use. Medical History GERD (gastroesophageal reflux disease) Anxiety HTN (hypertension) Asthma Surgical History History of hand surgery Social History Social History Unable to assess alcohol history related to: Unknown Smoked in Last 30 Days: No Use of substances other than those prescribed or required for medical reasons: No Substance Use Type: Marijuana Advance Directives: No Advance Directives Information Provided: Yes Physical Exam 2 Vital Signs: Vital Signs: Last Vital Signs Temp 98.7 F 06/21/24 09:06 Pulse 78 06/21/24 09:06 Resp 16 06/21/24 09:06 BP 105/68 06/21/24 09:06 Pulse Ox 93 06/21/24 09:06 O2 Del Method Room Air 06/21/24 09:06 BMI result Body Mass Index 31.2 vital signs were normal Exam: General: Awake, alert in no distress Head: Normocephalic, atraumatic EENT: PERRL, Lids normal, sclera normal, conjunctiva normal, nose normal , ears normal, throat without erythema or exudates Neck: Supple, no adenopathy Lung: breath sounds symmetric, no wheezing, rales or rhonchi Chest: symmetric movement, nontender Heart: regular rate and rhythm, normal S1, S2 no murmurs or rubs Abdomen: soft, [id number] epigastric tenderness, nondistended, normal bowel sounds Back: no vertebral tenderness, no CVAT Extremities: no deformities, moves all extremities symmetrically Neuro: Awake, alert, oriented, normal speech, moves all extremities symmetrically Psych: Pleasant, cooperative Medications Administered Discontinued Medications Generic Name Dose Route Start Last Admin Trade Name Fidelq PRN Reason Stop Dose Admin Sodium Chloride 1,000 mls @ 999 mls/hr 06/21/24 05:47 06/21/24 08:46 Ns IV 06/21/24 06:47 Infused .Q1H1M STA Infusion Ketorolac Tromethamine 15 mg 06/21/24 05:47 06/21/24 06:50 Ketorolac Tromethamine 15 Mg/Ml Vial IVPUSH 06/21/24 05:48 15 mg ONCE STA Administration Lorazepam 1 mg 06/21/24 05:47 06/21/24 08:34 Lorazepam 2 Mg/Ml Vial IVPUSH 06/21/24 05:48 1 mg STAT STA Administration Ondansetron HCl 4 mg 06/20/24 23:06 06/20/24 23:09 Ondansetron Odt 4 Mg Tab.Rapdis TRANSLINGU 06/20/24 23:07 4 mg ONCE ONE Administration Ondansetron HCl 4 mg 06/21/24 05:47 06/21/24 06:50 Ondansetron Hcl 4 Mg/2 Ml Vial IVPUSH 06/21/24 05:48 4 mg ONCE ONE Administration Medical Decision Making Medical Decision Making [facility] Narrative: 54-year-old male with history of hypertension, asthma, anxiety who presents emergency department for evaluation of weakness, fatigue, chills, myalgias, arthralgias, nausea, vomiting, diarrhea and abdominal pain with symptoms starting at 19:00 hours. Differential diagnosis: Includes but is not limited to viral syndrome, gastroenteritis, pancreatitis, diverticulitis, electrolyte abnormalities, anemia Course: my independent interpretation patient's laboratory evaluation is as follows: WBC elevated 14,500 with 92% neutrophils. ALT elevated 58. COVID-19, influenza and RSV were negative. Patient's symptoms, presentation laboratory evaluation is consistent with an acute viral syndrome /gastroenteritis virus. The patient was treated with normal saline IV x1 L, Toradol 15 mg IV, ondansetron 4 mg sublingually ondansetron 4 mg IV. Patient also complained of anxiety was given Ativan 1 mg IV. The patient felt significantly better after the above treatment. He was able to eat crackers and drink fluid prior to being discharged. The patient was discharged home with a prescription for Zofran 4 mg ODT every 6-8 hours as needed for nausea and vomiting. He is advised to take Tylenol and ibuprofen for pain and fever. He was also advised to stay on a ROSANNA diet for the next 24 hours. He was given printed and verbal instructions and discharged home. Admission/Observation Consideration of admission/observation: Escalation of care including admission/observation considered ( Yes) Lab Data MDM Lab Attestation statement: I reviewed the patient's lab results. 06/21/24 00:14 06/21/24 00:14 Labs: Lab Results 06/21/24 Range/Units 00:14 WBC 14.5 H (4.8-10.8) X10*3/uL RBC 4.95 (4.60-5.80) X10*6/uL Hgb 15.6 (14.0-18.0) g/dl Hct 42.7 (42.0-52.0) % MCV 86.3 (80.0-98.0) fL MCH 31.5 (27.0-33.0) pg MCHC 36.5 H (31.0-36.0) g/dl RDW 12.7 (11.0-16.0) % Plt Count 189 (160-400) X10*3/uL MPV 9.8 (9.4-12.4) fL Immature Gran % (Auto) 0.3 (0.0-0.4) % Neut % (Auto) 92.4 H (45-73) % Lymph % (Auto) 2.1 L (20-40) % [place] % (Auto) 4.5 (2-11) % Eos % (Auto) 0.6 (0-4) % Baso % (Auto) 0.1 (0-2) % Lymph # (Auto) 0.3 L (1.2-4.9) X10*3/uL [place] # (Auto) 0.7 (0.1-1.2) X10*3/uL Eos # (Auto) 0.1 (0.0-0.4) X10*3/uL Baso # (Auto) 0.0 (0.0-0.2) X10*3/uL Abs Immat Gran (auto) 0.04 H (0.00-0.03) X10*3/uL Absolute Neuts (auto) 13.4 H (2.0-8.3) x10*3/uL Absolute Nucleated RBC 0.000 (0.0-0.012) X10*3/uL Nucleated RBC % (auto) 0.0 (0.0-0.2) /100WBC Smear Tech's Comments VERIFIED Sodium 142 (135-145) mmol/L Potassium 3.8 (3.3-5.1) mmol/L Chloride 108 (96-108) mmol/L Carbon Dioxide 22 (22-29) mmol/L Anion Gap 16 (12-20) BUN 12 (9-16) mg/dL Creatinine 0.82 (0.5-1.4) mg/dL Estim Creat Clear Calc 130.1 Estimated GFR > 60 Random Glucose 109 (60-115) mg/dL Calcium 9.0 (8.4-10.2) mg/dL Total Bilirubin 0.9 (0.0-1.0) mg/dL AST 25 (5-37) U/L ALT 58 H (0-40) U/L Alkaline Phosphatase 61 (39-117) U/L Total Protein 8.3 H (6.5-8.0) g/dL Albumin 4.4 (3.5-5.0) g/dL Influenza Type A (PCR) NEGATIVE (Negative) Influenza Type B (PCR) NEGATIVE (Negative) RSV RNA Qual (PCR) NEGATIVE (Negative) SARS-CoV-2 RNA (RT-PCR) NEGATIVE (Negative) Prescription Management I considered prescription management with: Other ( anti emetic: Zofran ODT) Chronic Conditions Patient?s care impacted by: Hypertension and Other ( asthma, anxiety) Discharge Plan Discharge Clinical Impression: Viral syndrome, Dehydration, Vomiting, Diarrhea Patient Disposition: Home, Self-Care Instructions: Viral Syndrome (ED) Additional Instructions: Your blood work was unremarkable. Your COVID-19, influenza and RSV were negative. Your symptoms are consistent with a stomach flu verses food poisoning. Both of these conditions get better by themselves but we treat your symptoms until your body fights off the virus or food poisoning. Take Tylenol (acetaminophen) 500 mg pills, 2 pills every 6 hours as needed for pain or fever. Take Zofran ODT 4 mg pills, 1 pill dissolved in your mouth every 8 hours as needed for nausea and vomiting. For the next 24 hours, stay on a ROSANNA diet (bananas, rice, applesauce, tea and toast). Follow-up with your doctor in 2 days. Please return to the emergency department if your symptoms get worse or if you develop any symptoms that are concerning to you. Prescriptions: New ondansetron 4 mg tablet,disintegrating 4 mg PO Q6-8H PRN (Reason: nausea and vomiting) Qty: 14 0RF No Action (DME) AeroEclipse II Nebulizer Misc See Rx Instructions .ROUTE .MEDSUPPLY Qty: 1 0RF Rx Instructions: As directed azithromycin 250 mg tablet See Rx Instructions .ROUTE .COMPLEX Qty: 6 0RF Rx Instructions: take 500 mg today (day 1), then 250 mg for 4 days (days 2-5) albuterol sulfate 0.63 mg/3 mL solution for nebulization 0.63 mg inhalation QID PRN (Reason: shortness of breath or wheezing) Qty: 75 0RF albuterol sulfate 90 mcg/actuation HFA aerosol inhaler 1 inh inhalation QID PRN (Reason: shortness of breath or wheezing) Qty: 8.5 0RF codeine-guaifenesin [Guaifenesin AC] 10-100 mg/5 mL liquid 5 ml PO Q6H PRN (Reason: cold symptoms) Qty: 120 0RF ibuprofen 800 mg tablet 800 mg PO Q8H PRN (Reason: pain) Qty: 14 0RF acetaminophen [Tylenol Extra Strength] 500 mg tablet 1,000 mg PO QID PRN (Reason: fever or pain) Qty: 14 0RF lorazepam [Ativan] 1 mg tablet 1 mg PO BEDTIME PRN (Reason: anxiety/sleep) Qty: 20 0RF lorazepam [Ativan] 1 mg tablet 1 mg PO BEDTIME PRN (Reason: Anxiety/sleep) Qty: 10 0RF lisinopril 5 mg tablet 5 mg PO DAILY Qty: 30 0RF lorazepam [Ativan] 1 mg tablet 1 mg PO DAILY PRN (Reason: anxiety) Qty: 10 0RF Referrals: Siddhartha Garrett SERVICE DESK DIRECTOR [Primary Care Provider] - Interventions: ED Discharge Assessment Last Done: 06/21/24 09:06 Discharge Date/Time: 06/21/24 09:26 Print Language: Syriac
[2024-06-21] MEDS: 0.9 % Sodium Chloride 1,000 ML 999 ML IV (06:48)
[2024-06-21] MEDS: Ketorolac Tromethamine 15 MG/ML VIAL IVPUSH (06:50)
[2024-06-21] MEDS: ondansetron HCL 4 MG/2 ML VIAL IVPUSH (06:50)
--- NOTE | 2024-06-21 06:56 | PC.NURSE ---
patient reporting he can no take diazepam or lorazepam d/t reaction so withheld but then patient asked this RN if he was getting Ativan IV. and stated that is his prescription and he has no problem with is
[2024-06-21 08:19] VITALS: BP 105/68; PULSE 78; RESP 16; TEMP 37.1; O2SAT 93
[2024-06-21] MEDS: LORazepam 2 MG/ML VIAL 1 MG IVPUSH (08:34)
[2024-06-21 09:06] VITALS: BP 105/68; PULSE 78; RESP 16; TEMP 37.1; O2SAT 93
== END 2024-06-21 09:26 | disposition home or self-care (01) ==
PROVIDERS: Emergency Provider Emergency Medicine Emergency Medical Services; PCP Nurse Practitioner Family
DX: B34.9 Viral infection, unspecified (principal); E86.0 Dehydration; R11.2 Nausea with vomiting, unspecified; R19.7 Diarrhea, unspecified; R10.2 Pelvic and perineal pain; Z03.818 Encounter for observation for suspected exposure to other biological agents ruled out; Z79.899 Other long term (current) drug therapy
CPT/HCPCS: 0241U; 80053; 85025; 96361; 96374; 96375; 99284; J1885; J2060; J2405

== ENCOUNTER 2024-10-20 23:56 | Emergency (ER) | payer OTHER, SELFPAY ==
[2024-10-21] VITALS: BP 172/101; PULSE 80; O2SAT 97
[2024-10-21 00:02] VITALS: BP 140/92; PULSE 73; RESP 18; TEMP 36.8; O2SAT 98; BMI 27.3
[2024-10-21 01:02] VITALS: BP 148/95; PULSE 71; RESP 18; TEMP 36.9; O2SAT 98
--- NOTE | 2024-10-21 01:28 | ECG_ITS ---
Test Reason : HIGH BLOOD PRESSURE Blood Pressure : */* mmHG Vent. Rate : 67 BPM Atrial Rate : 67 BPM P-R Int : 152 ms QRS Dur : 86 ms QT Int : 396 ms P-R-T Axes : 24 8 25 degrees QTcB Int : 418 ms Normal sinus rhythm Normal ECG When compared with ECG of 31-Mar-2024 00:50, No significant change was found Referred By: Claudia Aguiar Electronically Signed By: KAYLYN RESENDIZ
[2024-10-21 01:33] LABS: Basophils Percent Auto 0.4 % (0-2); Eosinophils Absolute Auto 0.2 X10*3/uL (0.0-0.4); Eosinophils Percent Auto 1.8 % (0-4); Hematocrit 38.7 % (42.0-52.0); Hemoglobin 14.1 g/dl (14.0-18.0); Imm Gran Abs Auto 0.02 X10*3/uL (0.00-0.03); Imm Gran Pct Auto 0.2 % (0.0-0.4); Lymphocytes Absolute Auto 1.8 X10*3/uL (1.2-4.9); MANUAL DIFF FLAG NO; Mean Corpuscular HGB Conc 36.4 g/dl (31.0-36.0); Mean Corpuscular Hemoglobin 31.2 pg (27.0-33.0); Mean Corpuscular Volume 85.6 fL (80.0-98.0); Monocytes Absolute Auto 0.7 X10*3/uL (0.1-1.2); Monocytes Percent Auto 8.8 % (2-11); Neutrophils Absolute Auto 5.5 x10*3/uL (2.0-8.3); Neutrophils Percent Auto 66.8 % (45-73); Platelet Count 177 X10*3/uL (160-400); Red Blood Count 4.52 X10*6/uL (4.60-5.80); White Blood Count 8.3 X10*3/uL (4.8-10.8)
--- NOTE | 2024-10-21 01:36 | ED_ITS ---
HPI - General Adult General Chief complaint: General Medical Stated complaint: HYPERTENSION Time Seen by Provider: 10/21/24 01:20 Source: patient Mode of arrival: ambulatory Limitations: no limitations History of Present Illness ED Provider: Dr. Claudia Aguiar HPI narrative: Patient comes to the emergency room complaining of intermittent high blood pressure. According to the patient, he gets his medications by male, states he takes Coreg 12.5 mg b.i.d., Lasix 20 mg daily. Patient states that he is compliant with his medication. Patient concerned that his blood pressure spikes to the 190s every so often. Patient states that he sometimes has intermittent lightheadedness, no feel well but otherwise no complaints. No chest pain or shortness of breath, no headache. Patient states that sometimes he confuses his hypertension symptoms with the anxiety for which she takes lorazepam. Related Data Previous Rx's ?Medication ?Instructions ?Recorded acetaminophen 500 mg tablet 1,000 mg (2 x 500 mg) PO QID PRN 09/14/20 (Tylenol Extra Strength) fever or pain #14 tabs albuterol sulfate 0.63 mg/3 mL 0.63 mg (3 mL) inhalation QID PRN 09/14/20 solution for nebulization shortness of breath or wheezing #75 mL albuterol sulfate 90 mcg/actuation 1 inh inhalation QID PRN shortness 09/14/20 aerosol inhaler of breath or wheezing #8.5 grams azithromycin 250 mg tablet See Rx Instructions PO .COMPLEX #6 09/14/20 tabs codeine 10 mg-guaifenesin 100 mg/5 5 ml PO Q6H PRN cold symptoms #120 09/14/20 mL oral liquid (Guaifenesin AC) mL ibuprofen 800 mg tablet 800 mg PO Q8H PRN pain #14 tabs 09/14/20 nebulizers (AeroEclipse II #1 ea 09/14/20 Nebulizer) lorazepam 1 mg tablet (Ativan) 1 mg PO BEDTIME PRN anxiety/sleep 07/23/23 #20 tabs lorazepam 1 mg tablet (Ativan) 1 mg PO BEDTIME PRN Anxiety/sleep 08/31/23 #10 tabs lorazepam 1 mg tablet (Ativan) 1 mg PO DAILY PRN anxiety #10 tabs 01/12/24 lisinopril 5 mg tablet 5 mg PO DAILY #30 tabs 03/31/24 ondansetron 4 mg disintegrating 4 mg PO Q6-8H PRN nausea and 06/21/24 tablet vomiting #14 tabs carvedilol 25 mg tablet (Coreg) 25 mg PO BID #60 tabs 10/21/24 carvedilol 25 mg tablet (Coreg) 25 mg PO BID #60 tabs 10/21/24 Allergies Allergy/AdvReac Type Severity Reaction Status Date / Time diazepam [DIAZEPAM] Allergy Severe SYNCOPY Verified 10/21/24 00:04 animal dander Allergy Unknown Unknown Verified 10/21/24 00:04 pollen extracts Allergy Unknown Unknown Verified 10/21/24 00:04 buspirone AdvReac Unknown Abdominal Verified 10/21/24 00:04 Pain trazodone AdvReac Unknown Alopecia Verified 10/21/24 00:04 Environmental Allergy Unknown Unknown Uncoded 10/21/24 00:04 Review of Systems 2 Review of Systems: Constitutional : No Weight loss, No Fever, No Chills, No Night Sweats, No Fatigue, No Malaise ENT/Mouth : No Hearing loss, No Ear Pain, No Nasal Congestion, No Sinus Pain, No Hoarseness, No sore throat, No Rhinorrhea, No Swallowing Difficulty Eyes: No Eye Pain, No Swelling, No Redness, No Foreign Body, No Discharge, No Vision Changes Cardiovascular : Complaining of intermittent spikes in blood pressure, No Chest Pain, No SOB, No Dyspnea on Exertion, No Orthopnea, No Edema, No Palpitations Respiratory : No Cough, No Sputum, No Wheezing, No Smoke Exposure, No Dyspnea Gastrointestinal : No Nausea, No Vomiting, No Diarrhea, No Constipation, No abdominal Pain, No Hematochezia, No Melena Genitourinary : no irregular bleeding, No Dysuria, No Urinary Frequency, No Hematuria, No Urinary Incontinence, No Urgency, No Flank Pain, No Urinary Flow Changes, No Hesitancy Musculoskeletal : No joint pain, No Myalgias, No Joint Swelling Skin : No Skin Lesions, No rash Neuro : No Weakness, No Numbness, No Paresthesias, No Loss of Consciousness, No Dizziness, No Headache Psych : Intermittent anxiety, No Depression, No SI/HI/AH/VH, No Social Issues, Heme/Lymph: No Bruising, No Bleeding,No Lymphadenopathy Endocrine : No Polyuria, No Polydipsia, No Temperature Intolerance [facility] Past Medical History Medical History GERD (gastroesophageal reflux disease) Anxiety HTN (hypertension) Asthma Surgical History History of hand surgery Social History Social History Unable to assess alcohol history related to: Unknown Smoked in Last 30 Days: No Use of substances other than those prescribed or required for medical reasons: No Substance Use Type: Marijuana Advance Directives: No Advance Directives Information Provided: Yes Physical Exam ED Vital Signs: Vital Signs - 24 hr 10/21/24 00:02 10/21/24 01:02 Temperature 98.2 F 98.5 F Pulse Rate 73 71 Respiratory Rate 18 18 Blood Pressure 140/92 H 148/95 H Pulse Oximetry 98 98 Oxygen Delivery Method Room Air Room Air BMI result Body Mass Index 27.3 Const Other: Appearance: Alert. Oriented X3. No acute distress. Eyes: Pupils equal, round and reactive to light. ENT: Pharynx normal. Neck: Normal inspection. Neck supple. No lymph nodes noted. No crepitus CVS: Normal heart rate and rhythm. Pulses normal. Normal S1 and S2 Respiratory: No respiratory distress. Breath sounds normal. No Wheezing. No rales Abdomen: Soft and nontender. No rigidity. No distention. Skin: Skin warm and dry. Normal skin color. Normal skin turgor. Extremities: No lower extremity edema. No Lacerations. No Rash Neuro: Oriented X 3. No motor deficit. No sensory deficit. Moving all extremities. No slurred speech. CN 2 through 12 grossly intact Psych: calm, cooperative, normal affect Course Course Course Narrative: Patient concerned about his blood pressure spikes. Patient states he is compliant with Coreg 12.5 mg b.i.d. and Lasix 20 mg daily. His medications are not listed in our system, patient gets his meds delivered by mail. Patient admits that sometimes he gets very anxious and needs lorazepam. Medications Administered Discontinued Medications Generic Name Dose Route Start Last Admin Trade Name Freq PRN Reason Stop Dose Admin Lorazepam 1 mg 10/21/24 01:36 10/21/24 01:51 Lorazepam 1 Mg Tablet PO 10/21/24 01:37 1 mg ONCE ONE Administration Medical Decision Making Medical Decision Making [facility] Narrative: My interpretation of EKG: Normal sinus rhythm, heart rate 67, no ST segment depression or elevation, no T-wave inversion, QTC 418 My interpretation of labs: Normal hematology and chemistry, BNP negative, troponin negative Overall, patient seems very anxious, given 1 dose of lorazepam. Patient's blood pressure in the 140s systolic. Discussed with the patient to increase his Coreg to 25 mg b.i.d. and have close follow-up with his PCP. Patient's blood pressure 123/73 Differential Diagnosis Differential Diagnoses: The differential diagnosis associated with the presentation includes (Hypertension, anxiety) Admission/Observation Consideration of admission/observation: Escalation of care including admission/observation considered (Given patient's past medical history and presentation, observation was considered) Lab Data [facility] Lab Attestation statement: I reviewed the patient's lab results. 10/21/24 01:28 10/21/24 01:28 Labs: Lab Results 10/21/24 Range/Units 01:28 WBC 8.3 (4.8-10.8) X10*3/uL RBC 4.52 L (4.60-5.80) X10*6/uL Hgb 14.1 (14.0-18.0) g/dl Hct 38.7 L (42.0-52.0) % MCV 85.6 (80.0-98.0) fL MCH 31.2 (27.0-33.0) pg MCHC 36.4 H (31.0-36.0) g/dl RDW 13.0 (11.0-16.0) % Plt Count 177 (160-400) X10*3/uL MPV 10.0 (9.4-12.4) fL Immature Gran % (Auto) 0.2 (0.0-0.4) % Neut % (Auto) 66.8 (45-73) % Lymph % (Auto) 22.0 (20-40) % [place] % (Auto) 8.8 (2-11) % Eos % (Auto) 1.8 (0-4) % Baso % (Auto) 0.4 (0-2) % Lymph # (Auto) 1.8 (1.2-4.9) X10*3/uL [place] # (Auto) 0.7 (0.1-1.2) X10*3/uL Eos # (Auto) 0.2 (0.0-0.4) X10*3/uL Baso # (Auto) 0.0 (0.0-0.2) X10*3/uL Abs Immat Gran (auto) 0.02 (0.00-0.03) X10*3/uL Absolute Neuts (auto) 5.5 (2.0-8.3) x10*3/uL Absolute Nucleated RBC 0.000 (0.0-0.012) X10*3/uL Nucleated RBC % (auto) 0.0 (0.0-0.2) /100WBC Sodium 143 (135-145) mmol/L Potassium 3.8 (3.3-5.1) mmol/L Chloride 106 (96-108) mmol/L Carbon Dioxide 28 (22-29) mmol/L Anion Gap 13 (12-20) BUN 14 (9-16) mg/dL Creatinine 0.98 (0.5-1.4) mg/dL Estim Creat Clear Calc 90.0 Estimated GFR > 60 Random Glucose 92 (60-115) mg/dL Calcium 9.3 (8.4-10.2) mg/dL Total Bilirubin 0.4 (0.0-1.0) mg/dL AST 21 (5-37) U/L ALT 39 (0-40) U/L Alkaline Phosphatase 65 (39-117) U/L Troponin I High Sens 2.9 (<3.5-35.0) ng/L B-Natriuretic Peptide < 10 (<100) pg/mL Total Protein 7.8 (6.5-8.0) g/dL Albumin 4.4 (3.5-5.0) g/dL Independent Interpretation I performed an independent interpretation of an: EKG Critical Care Time Critical Care Time Critical Care Time: Yes Total Critical Care Time: 45 Attestation: I have personally provided critical care time. Time includes review of lab data, radiology results, discussion with consultants, and monitoring for potential decompensation. Intervention performed as documented. Discharge Plan Discharge Clinical Impression: Hypertension Patient Disposition: Home, Self-Care Instructions: Chronic Hypertension (ED) Additional Instructions: Please follow-up with your primary care physician tomorrow. If you have any worsening or new symptoms, please return to the emergency room or call 911 Prescriptions: New carvedilol [Coreg] 25 mg tablet 25 mg PO BID Qty: 60 0RF Rx Instructions: must administer with a meal/food carvedilol [Coreg] 25 mg tablet 25 mg PO BID Qty: 60 0RF Rx Instructions: must administer with a meal/food No Action (DME) AeroEclipse II Nebulizer Misc See Rx Instructions .ROUTE .MEDSUPPLY Qty: 1 0RF Rx Instructions: As directed azithromycin 250 mg tablet See Rx Instructions .ROUTE .COMPLEX Qty: 6 0RF Rx Instructions: take 500 mg today (day 1), then 250 mg for 4 days (days 2-5) albuterol sulfate 0.63 mg/3 mL solution for nebulization 0.63 mg inhalation QID PRN (Reason: shortness of breath or wheezing) Qty: 75 0RF albuterol sulfate 90 mcg/actuation HFA aerosol inhaler 1 inh inhalation QID PRN (Reason: shortness of breath or wheezing) Qty: 8.5 0RF codeine-guaifenesin [Guaifenesin AC] 10-100 mg/5 mL liquid 5 ml PO Q6H PRN (Reason: cold symptoms) Qty: 120 0RF ibuprofen 800 mg tablet 800 mg PO Q8H PRN (Reason: pain) Qty: 14 0RF acetaminophen [Tylenol Extra Strength] 500 mg tablet 1,000 mg PO QID PRN (Reason: fever or pain) Qty: 14 0RF lorazepam [Ativan] 1 mg tablet 1 mg PO BEDTIME PRN (Reason: anxiety/sleep) Qty: 20 0RF lorazepam [Ativan] 1 mg tablet 1 mg PO BEDTIME PRN (Reason: Anxiety/sleep) Qty: 10 0RF lisinopril 5 mg tablet 5 mg PO DAILY Qty: 30 0RF ondansetron 4 mg tablet,disintegrating 4 mg PO Q6-8H PRN (Reason: nausea and vomiting) Qty: 14 0RF lorazepam [Ativan] 1 mg tablet 1 mg PO DAILY PRN (Reason: anxiety) Qty: 10 0RF Print Language: Vietnamese
[2024-10-21] MEDS: LORazepam 1 MG TABLET PO (01:51)
[2024-10-21 01:55] LABS: Troponin-I High Sensitivity 2.9 ng/L (<3.5-35.0)
[2024-10-21 02:02] LABS: B Type Natriuretic Peptide < 10 pg/mL (<100)
[2024-10-21 02:04] LABS: Alanine Aminotransferase 39 U/L (0-40); Albumin Level 4.4 g/dL (3.5-5.0); Alkaline Phosphatase 65 U/L (39-117); Anion Gap 13 (12-20); Aspartate Amino Transferase 21 U/L (5-37); Bilirubin Total 0.4 mg/dL (0.0-1.0); Blood Urea Nitrogen 14 mg/dL (9-16); Calcium 9.3 mg/dL (8.4-10.2); Carbon Dioxide 28 mmol/L (22-29); Chloride 106 mmol/L (96-108); Estimated Glomerular Filt Rate > 60; Glucose Random 92 mg/dL (60-115); Potassium 3.8 mmol/L (3.3-5.1); Sodium 143 mmol/L (135-145); Total Protein 7.8 g/dL (6.5-8.0)
[2024-10-21 03:14] VITALS: BP 127/73; PULSE 64; RESP 18; TEMP 36.8; O2SAT 95
[2024-10-21 03:54] VITALS: BP 127/73; PULSE 64; RESP 18; TEMP 36.8; O2SAT 95
== END 2024-10-21 03:55 | disposition home or self-care (01) ==
PROVIDERS: Emergency Provider Emergency Medicine
DX: R42 Dizziness and giddiness (principal); F41.9 Anxiety disorder, unspecified; I10 Essential (primary) hypertension; Z79.899 Other long term (current) drug therapy
CPT/HCPCS: 36415; 80053; 83880; 84484; 85025; 93005; 99283; 99284

== ENCOUNTER → 2024-10-21 01:28 | Outpatient (BNV) | payer OTHER, SELFPAY | PROVIDERS: Emergency Provider Emergency Medicine; Visit Provider Internal Medicine | DX: I10 Essential (primary) hypertension (principal) | CPT/HCPCS: 93010 ==

== ENCOUNTER 2024-11-08 20:00 | Emergency (ER) | payer OTHER, SELFPAY ==
[2024-11-08 20:29] VITALS: BP 142/87; PULSE 75; RESP 18; TEMP 36.8; O2SAT 95; BMI 30.2
--- NOTE | 2024-11-08 20:29 | ED_ITS ---
HPI - General Adult General Chief complaint: Dizziness Stated complaint: dizziness hx of it today is bad, cant concentrate Time Seen by Provider: 11/09/24 00:06 Source: patient, RN notes reviewed and old records reviewed Mode of arrival: ambulatory Limitations: no limitations History of Present Illness ED Provider: Suzan HPI narrative: 54-year-old male past medical history significant for hypertension, PTSD, vertigo presents for evaluation of multiple complaints. He reports associated dizziness. He describes when I move my vision gets blurry. He states this has been going on for at least a few months. He reports he has [facility] seen a specialist. He reports he has had CT scans and MRIs of his head. He had vertigo confirmed with the tilt-table test. 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 He takes lorazepam for anxiety. He states he has tried meclizine in the past without any improvement in his symptoms denies any fevers, chills or respiratory symptoms Related Data Previous Rx's ?Medication ?Instructions ?Recorded acetaminophen 500 mg tablet 1,000 mg (2 x 500 mg) PO Q ID PRN 09/14/20 (Tylenol Extra Strength) fever or pain #14 tabs albuterol sulfate 0.63 mg/3 mL 0.63 mg (3 mL) inhalati on QID PRN 09/14/20 solution for nebulization shortness of breath or wheez ing #75 mL albuterol sulfate 90 mcg/actuation 1 inh inhalation QI D PRN shortness 09/14/20 aerosol inhaler of breath or wheezing #8.5 g derrick azithromycin 250 mg tablet See Rx Instructions PO .COM PLEX #6 09/14/20 tabs codeine 10 mg-guaifenesin 100 mg/5 5 ml PO Q6H PRN col d symptoms #120 09/14/20 mL oral liquid (Guaifenesin AC) mL ibuprofen 800 mg tablet 800 mg PO Q8H PRN pain #14 t abs 09/14/20 nebulizers (AeroEclipse II #1 ea 09/14/20 Nebulizer) lorazepam 1 mg tablet (Ativan) 1 mg PO BEDTIME PRN anx iety/sleep 07/23/23 #20 tabs lorazepam 1 mg tablet (Ativan) 1 mg PO BEDTIME PRN Anx iety/sleep 08/31/23 #10 tabs lorazepam 1 mg tablet (Ativan) 1 mg PO DAILY PRN anxie ty #10 tabs 01/12/24 lisinopril 5 mg tablet 5 mg PO DAILY #30 tabs 03/31 ondansetron 4 mg disintegrating 4 mg PO Q6-8H PRN naus ea and 06/21/24 tablet vomiting #14 tabs carvedilol 25 mg tablet (Coreg) 25 mg PO BID #60 tabs 10/21/24 carvedilol 25 mg tablet (Coreg) 25 mg PO BID #60 tabs 10/21/24 lorazepam 1 mg tablet 1 mg PO BID PRN dizziness or 11/09/24 vertigo #20 tabs meclizine 25 mg tablet 25 mg PO TID PRN dizziness # 20 tabs 11/09/24 Allergies Allergy/AdvReac Type Severity Reaction Status Date / Time diazepam (DIAZEPAM) Allergy Severe SYNCOPY Verified 11/08/24 20:33 animal dander Allergy Unknown Unknown Verified 11/08/24 20:33 pollen extracts Allergy Unknown Unknown Verified 11/08/24 20:33 buspirone AdvReac Unknown Abdominal Verified 11/08/24 20:33 Pain trazodone AdvReac Unknown Alopecia Verified 11/08/24 20:33 Environmental Allergy Unknown Unknown Uncoded 11/08/24 20:33 Review of Systems 2 Constitutional: Constitutional: Denies body ache(s), Denies chills, Denies frequent falls and Denies headache(s) Eyes: Eyes: Denies blind spots, Reports blurry vision, Denies loss of vision, Reports requires corrective lenses, Denies seeing flashes, Denies photophobia, Denies spots in vision and Denies tunnel vision ENT: Reports vertigo, Reports dizziness, Denies headache(s) and Denies disequilibrium Cardiovascular: Cardiovascular: Denies chest pain, Denies syncope and Denies dyspnea on exertion Respiratory: Respiratory: Denies cough and Denies dyspnea on exertion Gastrointestinal: Gastrointestinal: Denies abdominal pain Musculoskeletal: Musculoskeletal: Denies abnormal gait, Denies back pain and Denies tingling Integumentary/Breasts: Skin/Breast: Denies rash Neurologic: Denies abnormal gait, Denies confusion, Reports vertigo, Reports dizziness, Denies syncope, Denies frequent falls, Denies headache(s), Denies loss of vision, Reports memory loss, Denies radicular pain, Denies seizure-like activity, Denies Sensory deficit (Neuro), Denies tingling, Denies paresthesias, Denies tremor(s) and Denies disequilibrium Psychiatric: Psychiatric: Denies confusion and Reports memory loss PMF Past Medical History Medical History GERD (gastroesophageal reflux disease) Anxiety HTN (hypertension) Asthma Surgical History History of hand surgery Social History Social History Unable to assess alcohol history related to: Unknown Smoked in Last 30 Days: No Use of substances other than those prescribed or required for medical reasons: No Substance Use Type: Marijuana Advance Directives: No Advance Directives Information Provided: No Physical Exam ED Vital Signs: Vital Signs - 24 hr 11/08/24 20:29 11/08/24 22:08 11/09/24 00:54 Temperature 98.3 F 98.1 F Pulse Rate 75 56 58 Respiratory Rate 18 16 Blood Pressure 142/87 H 143/86 H 144/91 H Pulse Oximetry 95 95 Oxygen Delivery Method Room Air Room Air 11/09/24 01:02 11/09/24 01:03 Temperature Pulse Rate 62 62 Respiratory Rate Blood Pressure 158/97 H 172/104 H Pulse Oximetry Oxygen Delivery Method BMI result Body Mass Index 30.2 Const General: No confusion Nutritional Appearance: well nourished Orientation/consciousness: No confusion HENNJ Head: Yes normocephalic and Yes atraumatic Throat: Yes posterior oropharynx normal Eyes Alignment and Position: alignment normal Periorbital: periorbital findings normal Eyelids: Yes eyelids normal Conjunctivae: conjunctivae normal Sclerae: sclerae normal Corneas: corneas normal Pupils: Equal, round and reactive pupils present EOM: EOMs intact bilaterally and Nystagmus present Direct Ophthalmoscopy: No photophobia Neck Neck: Yes full ROM Resp Effort & Inspection: normal respiratory effort, able to speak in complete sentences and not labored GI Inspection: No distended Palpation (GI): Soft to palpation, not firm, nontender, no guarding and not rigid Auscultation: normoactive bowel sounds Skin General skin exam: elasticity normal Neuro General: No confusion Cranial nerves: Yes CN's II-XII intact bilaterally, Yes Equal, round and reactive pupils present, Yes Bilaterally intact EOM present and Yes Nystagmus present Cognition (Neuro): normal cognition Sensory Exam: No Sensory deficit (Neuro) Extrem Other: Moving all extremities well without any obvious deformities Course Course Course Narrative: This is an RME: Additional HPI, ROS, PE not included below will be deferred to primary provider. RME assessment and note performed by: Elicia Sylvester PA-C This is a 66-pzho-zpa-male, with a hx of HTN, who presents to the ER with complaints of dizziness x 6 months. Reports recent exposure to black mold. Reports that dizziness comes and goes. Reevaluation(s) Reevaluation #1: patient reports feeling better after oral treatment, he is not orthostatic, he is discharged to follow up with his primary providers [facility] the [facility] Time: 02:07 Medications Administered Discontinued Medications Generic Name Dose Route Start Last Admin Trade Name Sherie PRN Reason Stop Dose Admin Lorazepam 2 mg 11/09/24 00:37 11/09/24 00:59 Lorazepam 1 Mg Tablet PO 11/09/24 00:38 2 mg ONCE ONE Administration Meclizine HCl 50 mg 11/09/24 00:37 11/09/24 00:59 Meclizine Hcl 25 Mg Tablet PO 11/09/24 00:38 50 mg ONCE ONE Administration Medical Decision Making Medical Decision Making [facility] Narrative: 54-year-old male presents for evaluation of dizziness that has been worsening for at least 6 months. He has had previous outpatient workups and has a confirmed diagnosis of vertigo. On exam he has no focal neurologic deficits. He does have some nystagmus noted with extraocular motion. given that his symptoms have been worsening for 6 months I do not see any indication for emergent imaging, he has had an MRI in his CT scan per his report. His EKG does not show any ischemic changes. No arrhythmias noted. Plan for orthostatic vital signs. The patient's labs are consistent with his baseline and do not offer an explanation for his worsening dizziness. He reports he was not outside today in the heat. We will treat his symptoms with meclizine and Ativan Differential Diagnosis Differential Diagnoses: The differential diagnosis associated with the presentation includes vertigo Orthostasis Posterior stroke less likely CVA Lab Data MDM Lab Attestation statement: I reviewed the patient's lab results. No leukocytosis. The patient has a mild normocytic anemia consistent with labs going back to last year. Normal platelet count. No left shift. No significant chemistry abnormalities to explain the symptoms of dizziness. 11/08/24 20:52 11/08/24 20:52 Labs: Lab Results 11/08/24 Range/Units 20:52 WBC 7.2 (4.8-10.8) X10*3/uL RBC 4.33 L (4.60-5.80) X10*6/uL Hgb 13.4 L (14.0-18.0) g/dl Hct 36.8 L (42.0-52.0) % MCV 85.0 (80.0-98.0) fL MCH 30.9 (27.0-33.0) pg MCHC 36.4 H (31.0-36.0) g/dl RDW 12.8 (11.0-16.0) % Plt Count 165 (160-400) X10*3/uL MPV 10.1 (9.4-12.4) fL Immature Gran % (Auto) 0.1 (0.0-0.4) % Neut % (Auto) 68.2 (45-73) % Lymph % (Auto) 21.2 (20-40) % [place] % (Auto) 8.7 (2-11) % Eos % (Auto) 1.5 (0-4) % Baso % (Auto) 0.3 (0-2) % Lymph # (Auto) 1.5 (1.2-4.9) X10*3/uL [place] # (Auto) 0.6 (0.1-1.2) X10*3/uL Eos # (Auto) 0.1 (0.0-0.4) X10*3/uL Baso # (Auto) 0.0 (0.0-0.2) X10*3/uL Abs Immat Gran (auto) 0.01 (0.00-0.03) X10*3/uL Absolute Neuts (auto) 4.9 (2.0-8.3) x10*3/uL Absolute Nucleated RBC 0.000 (0.0-0.012) X10*3/uL Nucleated RBC % (auto) 0.0 (0.0-0.2) /100WBC Sodium 142 (135-145) mmol/L Potassium 3.9 (3.3-5.1) mmol/L Chloride 109 H (96-108) mmol/L Carbon Dioxide 25 (22-29) mmol/L Anion Gap 12 (12-20) BUN 11 (9-16) mg/dL Creatinine 0.99 (0.5-1.4) mg/dL Estim Creat Clear Calc 106.1 Estimated GFR > 60 Random Glucose 101 (60-115) mg/dL Calcium 9.2 (8.4-10.2) mg/dL Magnesium 2.0 (1.6-2.6) mg/dL Total Bilirubin 0.5 (0.0-1.0) mg/dL Direct Bilirubin 0.2 (0.0-0.5) mg/dL AST 21 (5-37) U/L ALT 42 H (0-40) U/L Alkaline Phosphatase 61 (39-117) U/L Troponin I High Sens 4.9 D (<3.5-35.0) ng/L Total Protein 7.4 (6.5-8.0) g/dL Albumin 4.4 (3.5-5.0) g/dL Independent Interpretation I performed an independent interpretation of an: EKG Interpretation: Normal sinus rhythm with a rate of 64 beats minute. No ectopy or ischemic changes Discharge Plan Discharge Clinical Impression: Vertigo Patient Disposition: Home, Self-Care Instructions: Vertigo (ED) Additional Instructions: your workup in the ER today was reassuring. You may use the lorazepam as needed for dizziness, I recommend using it with meclizine to treat vertigo. Follow-up with your primary doctor, return for new or worsening symptoms Prescriptions: New lorazepam 1 mg tablet 1 mg PO BID PRN (Reason: dizziness or vertigo) Qty: 20 0RF meclizine 25 mg tablet 25 mg PO TID PRN (Reason: dizziness) Qty: 20 0RF No Action (DME) AeroEclipse II Nebulizer Misc See Rx Instructions .ROUTE .MEDSUPPLY Qty: 1 0RF Rx Instructions: As directed azithromycin 250 mg tablet See Rx Instructions .ROUTE .COMPLEX Qty: 6 0RF Rx Instructions: take 500 mg today (day 1), then 250 mg for 4 days (days 2-5) albuterol sulfate 0.63 mg/3 mL solution for nebulization 0.63 mg inhalation QID PRN (Reason: shortness of breath or wheezing) Qty: 75 0RF albuterol sulfate 90 mcg/actuation HFA aerosol inhaler 1 inh inhalation QID PRN (Reason: shortness of breath or wheezing) Qty: 8.5 0RF codeine-guaifenesin [Guaifenesin AC] 10-100 mg/5 mL liquid 5 ml PO Q6H PRN (Reason: cold symptoms) Qty: 120 0RF ibuprofen 800 mg tablet 800 mg PO Q8H PRN (Reason: pain) Qty: 14 0RF acetaminophen [Tylenol Extra Strength] 500 mg tablet 1,000 mg PO QID PRN (Reason: fever or pain) Qty: 14 0RF lorazepam [Ativan] 1 mg tablet 1 mg PO BEDTIME PRN (Reason: anxiety/sleep) Qty: 20 0RF lorazepam [Ativan] 1 mg tablet 1 mg PO BEDTIME PRN (Reason: Anxiety/sleep) Qty: 10 0RF lisinopril 5 mg tablet 5 mg PO DAILY Qty: 30 0RF ondansetron 4 mg tablet,disintegrating 4 mg PO Q6-8H PRN (Reason: nausea and vomiting) Qty: 14 0RF carvedilol [Coreg] 25 mg tablet 25 mg PO BID Qty: 60 0RF Rx Instructions: must administer with a meal/food carvedilol [Coreg] 25 mg tablet 25 mg PO BID Qty: 60 0RF Rx Instructions: must administer with a meal/food lorazepam [Ativan] 1 mg tablet 1 mg PO DAILY PRN (Reason: anxiety) Qty: 10 0RF Print Language: Bahamian
--- NOTE | 2024-11-08 20:31 | ECG_ITS ---
Test Reason : dizziness Blood Pressure : */* mmHG Vent. Rate : 64 BPM Atrial Rate : 64 BPM P-R Int : 148 ms QRS Dur : 84 ms QT Int : 402 ms P-R-T Axes : 16 12 27 degrees QTcB Int : 414 ms Normal sinus rhythm Normal ECG When compared with ECG of 21-Oct-2024 02:14, No significant change was found Referred By: Elicia Sylvester Electronically Signed By: KAYLYN RESENDIZ
[2024-11-08 20:57] LABS: Basophils Percent Auto 0.3 % (0-2); Eosinophils Absolute Auto 0.1 X10*3/uL (0.0-0.4); Eosinophils Percent Auto 1.5 % (0-4); Hematocrit 36.8 % (42.0-52.0); Hemoglobin 13.4 g/dl (14.0-18.0); Imm Gran Abs Auto 0.01 X10*3/uL (0.00-0.03); Imm Gran Pct Auto 0.1 % (0.0-0.4); Lymphocytes Absolute Auto 1.5 X10*3/uL (1.2-4.9); Lymphocytes Percent Auto 21.2 % (20-40); MANUAL DIFF FLAG NO; Mean Corpuscular HGB Conc 36.4 g/dl (31.0-36.0); Mean Corpuscular Hemoglobin 30.9 pg (27.0-33.0); Mean Platelet Volume 10.1 fL (9.4-12.4); Monocytes Absolute Auto 0.6 X10*3/uL (0.1-1.2); Monocytes Percent Auto 8.7 % (2-11); Neutrophils Absolute Auto 4.9 x10*3/uL (2.0-8.3); Neutrophils Percent Auto 68.2 % (45-73); Platelet Count 165 X10*3/uL (160-400); Red Blood Count 4.33 X10*6/uL (4.60-5.80); Red Cell Distribution Width 12.8 % (11.0-16.0); White Blood Count 7.2 X10*3/uL (4.8-10.8)
[2024-11-08 21:13] LABS: Alanine Aminotransferase 42 U/L (0-40); Albumin Level 4.4 g/dL (3.5-5.0); Alkaline Phosphatase 61 U/L (39-117); Anion Gap 12 (12-20); Aspartate Amino Transferase 21 U/L (5-37); Bilirubin Direct 0.2 mg/dL (0.0-0.5); Bilirubin Total 0.5 mg/dL (0.0-1.0); Blood Urea Nitrogen 11 mg/dL (9-16); Calcium 9.2 mg/dL (8.4-10.2); Carbon Dioxide 25 mmol/L (22-29); Chloride 109 mmol/L (96-108); Creatinine Clr Calc Pharmacy 106.1; Estimated Glomerular Filt Rate > 60; Glucose Random 101 mg/dL (60-115); Potassium 3.9 mmol/L (3.3-5.1); Sodium 142 mmol/L (135-145); Total Protein 7.4 g/dL (6.5-8.0)
[2024-11-08 21:20] LABS: Troponin-I High Sensitivity 4.9 ng/L (<3.5-35.0)
[2024-11-08 22:08] VITALS: BP 143/86; PULSE 56; RESP 16; TEMP 36.7; O2SAT 95
[2024-11-09 00:54] VITALS: BP 144/91; PULSE 58
[2024-11-09] MEDS: Meclizine HCl 25 MG TABLET 50 MG PO (00:59)
[2024-11-09] MEDS: LORazepam 1 MG TABLET 2 MG PO (00:59)
[2024-11-09 01:02] VITALS: BP 158/97; PULSE 62
[2024-11-09 01:03] VITALS: BP 172/104; PULSE 62
[2024-11-09 02:19] VITALS: BP 149/87; PULSE 69; RESP 14; TEMP 36.9; O2SAT 97
--- NOTE | 2024-11-09 02:20 | PC.NURSE ---
ambulates steadily, states his symptoms are much better and is at a level where it's liveable.
== END 2024-11-09 02:20 | disposition home or self-care (01) ==
PROVIDERS: Physician Assistant Medical; Emergency Provider Emergency Medicine; PCP Nurse Practitioner Family
DX: R42 Dizziness and giddiness (principal); H53.8 Other visual disturbances; Z79.899 Other long term (current) drug therapy
CPT/HCPCS: 36415; 80048; 80076; 83735; 84484; 85025; 93005; 99283; 99284

== ENCOUNTER → 2024-11-08 20:31 | Outpatient (BNV) | payer OTHER, SELFPAY | PROVIDERS: Emergency Provider Emergency Medicine; PCP Nurse Practitioner Family; Visit Provider Internal Medicine | DX: R42 Dizziness and giddiness (principal) | CPT/HCPCS: 93010 ==

== ENCOUNTER 2025-02-08 07:14 | Emergency (ER) | payer OTHER, SELFPAY ==
[2025-02-08 07:22] VITALS: BP 140/91; PULSE 68; RESP 18; TEMP 36.4; O2SAT 94; BMI 32.3
--- NOTE | 2025-02-08 07:23 | ECG_ITS ---
Test Reason : dizziness Blood Pressure : */* mmHG Vent. Rate : 70 BPM Atrial Rate : 70 BPM P-R Int : 166 ms QRS Dur : 94 ms QT Int : 408 ms P-R-T Axes : 26 5 10 degrees QTcB Int : 440 ms Normal sinus rhythm Normal ECG When compared with ECG of 08-Nov-2024 20:44, No significant change was found Referred By: Jyothi Payne Electronically Signed By: Buck Hughes
--- NOTE | 2025-02-08 07:24 | ED_ITS ---
HPI - Dizziness General Chief Complaint: General Medical Stated Complaint: DZZINESS PER EMS Time Seen by Provider: 02/08/25 07:17 Source: patient, EMS and old records reviewed Mode of arrival: EMS Limitations: no limitations History of Present Illness ED Provider: EFREN HPI Narrative: 54 yo male with PMH of anxiety, insomnia, PTSD, vertigo, HTN who has been dealing with increased insomnia. He was recently started on klonopin 1 week ago for anxiety. He has been taking it. Yesterday he decided that he really needed to sleep and went to a dispensary (has not smoked in 30 years). He then got pre rolled high test stuff and ended up smoking half a joint. He notes he now feels dizzy but not like vertigo. He feels slow. He has some nausea. No CP/SOB. No GIB symptoms. He has not used THC in a few decades. He smoked at midnight. MD elicited complaint: dizziness Onset (ago): hour(s) (several) Timing: gradual onset Severity: moderate Description: lightheadedness and off-balance Context: change in body position History of similar symptoms: Yes Exacerbating factors: position/lying down Relieving factors: remaining still Associated symptoms: nausea Related Data Previous Rx's ?Medication ?Instructions ?Recorded acetaminophen 500 mg tablet 1,000 mg (2 x 500 mg) PO Q ID PRN 09/14/20 (Tylenol Extra Strength) fever or pain #14 tabs albuterol sulfate 0.63 mg/3 mL 0.63 mg (3 mL) inhalati on QID PRN 09/14/20 solution for nebulization shortness of breath or wheez ing #75 mL albuterol sulfate 90 mcg/actuation 1 inh inhalation QI D PRN shortness 09/14/20 aerosol inhaler of breath or wheezing #8.5 g derrick azithromycin 250 mg tablet See Rx Instructions PO .COM PLEX #6 09/14/20 tabs codeine 10 mg-guaifenesin 100 mg/5 5 ml PO Q6H PRN col d symptoms #120 09/14/20 mL oral liquid (Guaifenesin AC) mL ibuprofen 800 mg tablet 800 mg PO Q8H PRN pain #14 t abs 09/14/20 nebulizers (AeroEclipse II #1 ea 09/14/20 Nebulizer) lorazepam 1 mg tablet (Ativan) 1 mg PO BEDTIME PRN anx iety/sleep 07/23/23 #20 tabs lorazepam 1 mg tablet (Ativan) 1 mg PO BEDTIME PRN Anx iety/sleep 08/31/23 #10 tabs lorazepam 1 mg tablet (Ativan) 1 mg PO DAILY PRN anxie ty #10 tabs 01/12/24 lisinopril 5 mg tablet 5 mg PO DAILY #30 tabs 03/31 ondansetron 4 mg disintegrating 4 mg PO Q6-8H PRN naus ea and 06/21/24 tablet vomiting #14 tabs carvedilol 25 mg tablet (Coreg) 25 mg PO BID #60 tabs 10/21/24 carvedilol 25 mg tablet (Coreg) 25 mg PO BID #60 tabs 10/21/24 lorazepam 1 mg tablet 1 mg PO BID PRN dizziness or 11/09/24 vertigo #20 tabs meclizine 25 mg tablet 25 mg PO TID PRN dizziness # 20 tabs 11/09/24 Allergies Allergy/AdvReac Type Severity Reaction Status Date / Time diazepam (DIAZEPAM) Allergy Severe SYNCOPY Verified 02/08/25 07:23 animal dander Allergy Unknown Unknown Verified 02/08/25 07:23 pollen extracts Allergy Unknown Unknown Verified 02/08/25 07:23 buspirone AdvReac Unknown Abdominal Verified 02/08/25 07:23 Pain trazodone AdvReac Unknown Alopecia Verified 02/08/25 07:23 Environmental Allergy Unknown Unknown Uncoded 02/08/25 07:23 Review of Systems 2 Review of Systems: Constitutional : No Fever, No Chills, pos Fatigue ENT/Mouth : No sore throat, No Rhinorrhea Eyes: No Eye Pain, No Swelling, No Redness Cardiovascular : No Chest Pain, No SOB, No Dyspnea on Exertion Respiratory : No Cough, No Sputum Gastrointestinal : pos Nausea, No Vomiting Musculoskeletal : No joint pain, No Myalgias, No Joint Swelling Skin : No Skin Lesions, No rash Neuro : No Weakness, No Numbness, pos dizziness, no headache All other systems reviewed and are negative [facility] Past Medical History Attestation statement: The following information was validated with the patient. Source: old records reviewed Medical History GERD (gastroesophageal reflux disease) Anxiety HTN (hypertension) Asthma Surgical History History of hand surgery Social History Social History (Updated 02/08/25 @ 07:29 by Jyothi Payne DO) Patient Tobacco Use Status: Tobacco use Unknown Substance Use Type: Marijuana Advance Directives: No Advance Directives Information Provided: Yes Do you have a plan to hurt others: No Plan Physical Exam 2 Vital Signs: Vital Signs: Last Vital Signs Temp 97.6 F 02/08/25 10:35 Pulse 70 02/08/25 10:35 Resp 16 02/08/25 10:35 BP 116/77 02/08/25 10:35 Pulse Ox 95 02/08/25 10:35 O2 Del Method Room Air 02/08/25 10:35 BMI result Body Mass Index 32.3 Appearance: Alert. Oriented X3. No acute distress. slow to respond but smiling and joking does appear under the influence. Eyes: Pupils equal, round and reactive to light. ENT: Pharynx normal. Neck: Normal inspection. Neck supple. CVS: Normal heart rate and rhythm. Pulses normal. Respiratory: No respiratory distress. Breath sounds normal. Abdomen: Soft and nontender. Skin: Skin warm and dry. Normal skin color. Normal skin turgor. Extremities: No lower extremity edema. No calf ttp Neuro: Oriented X 3. No motor deficit. No sensory deficit. CN2-12 intact NIH Stroke Scale Internal: Initial- Upon Arrival Level of Consciousness: Alert Level of Consciousness Questions: Answers both questions correctly Level of Consciousness Commands: Performs both tasks correctly Best Gaze: Normal Visual: No visual loss Facial Palsy: Normal Motor Arm (Right): No drift Motor Arm (Left): No drift Motor Leg (Right): No drift Motor Leg (Left): No drift Limb Ataxia: Absent Sensory: Normal Best Language: No aphasia Dysarthia: Normal Extinction and Inattention: No abnormality Score: 0 Medications Administered Discontinued Medications Generic Name Dose Route Start Last Admin Trade Name Freq PRN Reason Stop Dose Admin Lactated Ringer's 1,000 mls @ 999 mls/hr 02/08/25 07:23 02/08/25 08:50 Lr IV 02/08/25 08:23 Infused .Q1H1M ONE Infusion Lorazepam 1 mg 02/08/25 07:23 02/08/25 07:46 Lorazepam 1 Mg Tablet PO 02/08/25 07:24 1 mg ONCE ONE Administration Ondansetron HCl 4 mg 02/08/25 07:59 02/08/25 08:01 Ondansetron Odt 4 Mg Tab.Anton TALAVERAU 02/08/25 08:00 4 mg ONCE ONE Administration Medical Decision Making Medical Decision Making [facility] Narrative: 54 yo male with PMH of anxiety, insomnia, PTSD, vertigo, HTN here with c/o feeling slow and dizzy after smoking half a blunt which he has not used THC in a few decades. He has no CP/SOB. He has NIH of 0. He is neuro intact. I do not suspect posterior stroke given lack of any other symptoms and symptoms are positional. I also do not suspect VTE or ACS he has stable VS and no signs of DVT. Will obtain EKG, lytes, hydrate and offer PRN ativan. Differential Diagnosis Differential Diagnoses: The differential diagnosis associated with the presentation includes THC intoxication, lyte abnormality, anxiety, dehydration Admission/Observation Consideration of admission/observation: Escalation of care including admission/observation considered feels better steady gait, no vomiting, stable for DC Lab Data [facility] Lab Attestation statement: I reviewed the patient's lab results. 02/08/25 07:37 02/08/25 07:37 Labs: Lab Results 02/08/25 Range/Units 07:37 WBC 6.7 (4.8-10.8) X10*3/uL RBC 4.66 (4.60-5.80) X10*6/uL Hgb 14.8 (14.0-18.0) g/dl Hct 40.3 L (42.0-52.0) % MCV 86.5 (80.0-98.0) fL MCH 31.8 (27.0-33.0) pg MCHC 36.7 H (31.0-36.0) g/dl RDW 13.2 (11.0-16.0) % Plt Count 177 (160-400) X10*3/uL MPV 10.3 (9.4-12.4) fL Immature Gran % (Auto) 0.3 (0.0-0.4) % Neut % (Auto) 67.1 (45-73) % Lymph % (Auto) 23.9 (20-40) % Gulf % (Auto) 6.0 (2-11) % Eos % (Auto) 2.1 (0-4) % Baso % (Auto) 0.6 (0-2) % Lymph # (Auto) 1.6 (1.2-4.9) X10*3/uL Gulf # (Auto) 0.4 (0.1-1.2) X10*3/uL Eos # (Auto) 0.1 (0.0-0.4) X10*3/uL Baso # (Auto) 0.0 (0.0-0.2) X10*3/uL Abs Immat Gran (auto) 0.02 (0.00-0.03) X10*3/uL Absolute Neuts (auto) 4.5 (2.0-8.3) x10*3/uL Absolute Nucleated RBC 0.000 (0.0-0.012) X10*3/uL Nucleated RBC % (auto) 0.0 (0.0-0.2) /100WBC Sodium 145 (135-145) mmol/L Potassium 3.7 (3.3-5.1) mmol/L Chloride 111 H (96-108) mmol/L Carbon Dioxide 25 (22-29) mmol/L Anion Gap 13 (12-20) BUN 7 L (9-16) mg/dL Creatinine 0.80 (0.5-1.4) mg/dL Estim Creat Clear Calc 135.5 Estimated GFR > 60 Random Glucose 137 H (60-115) mg/dL Calcium 8.8 (8.4-10.2) mg/dL Magnesium 2.1 (1.6-2.6) mg/dL Total Bilirubin 0.4 (0.0-1.0) mg/dL Direct Bilirubin 0.1 (0.0-0.5) mg/dL AST 25 (5-37) U/L ALT 51 H (0-40) U/L Alkaline Phosphatase 60 (39-117) U/L Total Protein 7.8 (6.5-8.0) g/dL Albumin 4.5 (3.5-5.0) g/dL Independent Interpretation I performed an independent interpretation of an: EKG Interpretation: Rate: 70 Rhythm: NSR [place]: left Normal P waves. Normal ABDI. Normal QRS complex. ST T wave : no CHERRY, flat t waves III qTC: 440 prior studies: no change from priors The study has been interpreted contemporaneously by me. . Independent Historian Clinical information obtained from an independent historian. History obtained from or confirmed by: EMS External Record Review External record reviewed: Outpatient record and Prior outpatient labs Discharge Plan Discharge Clinical Impression: Dizziness Cannabis intoxication Qualifiers: Complication of substance-induced condition: with unspecified complication Q ualified Code(s): F12.929 - Cannabis use, unspecified with intoxication, unspecified Patient Disposition: Home, Self-Care Instructions: Medicinal Use of Cannabis (ED), Dizziness (ED) Additional Instructions: your labs are reassuring your EKG is reassuring rest and stay hydrated today I would advise you do not use marijuana anymore given your response this may take several hours for you to feel back to baseline return for any worsening symptoms or concerns. continue all of your other medications. Prescriptions: No Action (DME) AeroEclipse II Nebulizer Misc See Rx Instructions .ROUTE .MEDSUPPLY Qty: 1 0RF Rx Instructions: As directed azithromycin 250 mg tablet See Rx Instructions .ROUTE .COMPLEX Qty: 6 0RF Rx Instructions: take 500 mg today (day 1), then 250 mg for 4 days (days 2-5) albuterol sulfate 0.63 mg/3 mL solution for nebulization 0.63 mg inhalation QID PRN (Reason: shortness of breath or wheezing) Qty: 75 0RF albuterol sulfate 90 mcg/actuation HFA aerosol inhaler 1 inh inhalation QID PRN (Reason: shortness of breath or wheezing) Qty: 8.5 0RF codeine-guaifenesin [Guaifenesin AC] 10-100 mg/5 mL liquid 5 ml PO Q6H PRN (Reason: cold symptoms) Qty: 120 0RF ibuprofen 800 mg tablet 800 mg PO Q8H PRN (Reason: pain) Qty: 14 0RF acetaminophen [Tylenol Extra Strength] 500 mg tablet 1,000 mg PO QID PRN (Reason: fever or pain) Qty: 14 0RF lorazepam [Ativan] 1 mg tablet 1 mg PO BEDTIME PRN (Reason: anxiety/sleep) Qty: 20 0RF lorazepam [Ativan] 1 mg tablet 1 mg PO BEDTIME PRN (Reason: Anxiety/sleep) Qty: 10 0RF lisinopril 5 mg tablet 5 mg PO DAILY Qty: 30 0RF ondansetron 4 mg tablet,disintegrating 4 mg PO Q6-8H PRN (Reason: nausea and vomiting) Qty: 14 0RF carvedilol [Coreg] 25 mg tablet 25 mg PO BID Qty: 60 0RF Rx Instructions: must administer with a meal/food carvedilol [Coreg] 25 mg tablet 25 mg PO BID Qty: 60 0RF Rx Instructions: must administer with a meal/food lorazepam [Ativan] 1 mg tablet 1 mg PO DAILY PRN (Reason: anxiety) Qty: 10 0RF lorazepam 1 mg tablet 1 mg PO BID PRN (Reason: dizziness or vertigo) Qty: 20 0RF meclizine 25 mg tablet 25 mg PO TID PRN (Reason: dizziness) Qty: 20 0RF Print Language: Syriac
[2025-02-08] MEDS: Lactated Ringers 1,000 ML 999 ML IV (07:46)
[2025-02-08 10:35] VITALS: BP 116/77; PULSE 70; RESP 16; TEMP 36.4; O2SAT 95
--- NOTE | 2025-02-08 10:38 | PC.NURSE ---
patient states he feels better although tired, ambulated with steady gait to the bathroom.
== END 2025-02-08 10:42 | disposition home or self-care (01) ==
PROVIDERS: Emergency Provider Emergency Medicine; PCP Nurse Practitioner Family
DX: F12.929 Cannabis use, unspecified with intoxication, unspecified (principal); R42 Dizziness and giddiness; I10 Essential (primary) hypertension; F41.9 Anxiety disorder, unspecified; R11.0 Nausea; Z79.899 Other long term (current) drug therapy
CPT/HCPCS: 36415; 80048; 80076; 83735; 85025; 93005; 96360; 99284; 99285; J7120

== ENCOUNTER → 2025-02-08 07:23 | Outpatient (BNV) | payer OTHER, SELFPAY | PROVIDERS: Emergency Provider Emergency Medicine; PCP Nurse Practitioner Family; Visit Provider Internal Medicine Cardiovascular Disease | DX: R42 Dizziness and giddiness (principal) | CPT/HCPCS: 93010 ==